=== PATIENT | male | born 1980 | race Caucasian/White ===

== ENCOUNTER 2020-04-09 15:54 | Emergency (ER) | payer OTHER, SELFPAY ==
[2020-04-09 16:06] VITALS: BP 121/84; PULSE 78; RESP 20; TEMP 36.7; O2SAT 98; BMI 36.9
--- NOTE | 2020-04-09 16:12 | HMH.EDUTC ---
[facility] [place] Disposition Clinical Impression: Exposure to COVID-19 virus Tinea pedis Qualifiers: Laterality: left Qualified Code(s): B35.3 - Tinea pedis Disposition: Home, Self-Care Condition on Discharge: Good Instructions: DI for Athlete's Foot, Clotrimazole Topical, Preventing the Spread of Coronavirus Discharge Instructions Additional Instructions: Drink plenty of fluids. Take tylenol for pain or fever. Return if you begin to have difficulty breathing. Follow up with your regular doctor. GO TO THE ER FOR ANY WORSENING SYMPTOMS Prescriptions: Clotrimazole 1 applicatio TP BID 14 Days #1 tube Transmission Status: Received by [facility]/pharmacy #[id number] Referrals: Giana Garcia [Primary Care Provider] - Time of Disposition: 16:27 Medical Decision Making - Medical Records Medical records reviewed: No: I reviewed the patient's medical records. - Dariel Inquiry Pt receiving controlled substance: No Vital Signs: 04/09/20 16:06 04/09/20 16:31 Temperature 98.1 F 98.1 F Temperature Source Oral Oral Pulse Rate 78 Pulse Rate [Radial] 78 Respiratory Rate 20 20 Blood Pressure 121/84 Blood Pressure [Right Arm] 121/84 Blood Pressure Mean [Right Arm] 96 Blood Pressure Source Automatic Cuff Blood Pressure Source [Right Arm] Automatic Cuff Blood Pressure Position Sitting Blood Pressure Position [Right Arm] Sitting 02 Sat by Pulse Oximetry 98 Oxygen Delivery Method Room Air Room Air Orders (Tests/Meds): ORDERS Category Date Time Status Covid-19 Nasal PCR ([facility]) Routine Lab 04/09/20 14:25 Received [facility] [place] HPI - General Stated complaint: covid test Time Seen by Provider: 04/09/20 16:12 Mode of Arrival: Ambulatory Source of Information: Patient Limitations: No Limitations Description of Symptoms (Recalled from Triage Doc. by RN): covid test HEENT Symptoms (Recalled from RN notes): No Resp Symptoms (Recalled from RN notes): No Skin Symptoms (Recalled from RN notes): No MS Symptoms (Recalled from RN notes): No Functional Status (Recalled from RN notes): wnl - History of Present Illness Provider Complaint: He thinks that he may have been exposed to covid. He also c/o having an itchy area on his left foot. - Related Data Home Medications Medication Instructions Recorded Confirmed loratadine 10 mg tablet 10 mg PO DAILY 12/31/18 12/31/18 Previous Rx's Medication Instructions Recorded nystatin-triamcinolone 100,000 1 applic TOPICAL TID 14 Days #30 g 05/15/18 unit/g-0.1 % topical cream Clotrimazole 1 applicatio TP BID 14 Days #1 tube 04/09/20 Allergies Allergy/AdvReac Type Severity Reaction Status Date / Time No Known Allergies Allergy Verified 05/15/18 16:12 - Worker's Comp Is this a Worker's Comp case?: No H History - Hepatitis A Screen Drug use history?: No High risk sexual behaviors?: No History of sexually transmitted infection?: No Currently employed?: No Childcare worker?: No Do you have indoor plumbing?: Yes Do you have electricity?: Yes Attestation statement:: This patient has been screened for Hepatitis A risk factors. I have reviewed the patient's past medical history: Yes 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: Denies:: Cancer, Diabetes Mellitus Type 1, Diabetes Mellitus Type 2, MRSA Other Surgeries: Yes: No Previous Surgery Amputation: No Fractures: No - Social History Smoking Status: Never smoker Alcohol Intake: never Occupational Status: employed Housing: house ROS Obtained: Yes All systems reviewed & no additional complaints - Constitutional Constitutional: Reports system reviewed and no additional complaints, except as docu - Eyes Eyes: Reports system reviewed and no additional complaints, except as docu - ENT Ears, Nose, Mouth, and Throat: Reports system reviewed and no additional complaints, except as docu - Cardiovascular Cardiovascular: Reports system reviewed and no additional complaints, except as docu - Respiratory Respiratory
[2020-04-09 16:31] VITALS: BP 121/84; PULSE 78; RESP 20; TEMP 36.7; O2SAT 98
--- NOTE | 2020-04-10 17:44 | PC.NURSE ---
attempted to contact pt to notify of test results, no answer on the number provided, left a voicemail asking for a return call.
--- NOTE | 2020-04-10 17:48 | PC.NURSE ---
notified pt of covid test result at this time. pt was educated on quarantine procedure r/t pt was hesitant about his test result r/t pt states he has not symptoms. pt verbalizes understanding.
== END 2020-04-09 16:38 | disposition home or self-care (01) ==
PROVIDERS: Emergency Provider Nurse Practitioner Family; PCP Nurse Practitioner Family
DX: U07.1 COVID-19 (principal); B35.3 Tinea pedis
CPT/HCPCS: 99201; U0003

== ENCOUNTER 2021-03-06 06:07 | Emergency (ER) | payer MEDICAID, SELFPAY ==
[2021-03-06 06:08] VITALS: BP 144/85; PULSE 102; RESP 16; TEMP 36.8; O2SAT 99; BMI 34.9
--- NOTE | 2021-03-06 06:12 | HMH.EDGENADL ---
ED Disposition Clinical Impression: Upper respiratory infection Qualifiers: URI type: unspecified viral URI Qualified Code(s): J06.9 - Acute upper respiratory infection, unspecified Disposition: Home, Self-Care Condition on Discharge: Good Instructions: DI for Acute Bronchitis Additional Instructions: Follow up with your PCP to evaluate if treatments are effective. Referrals: Giana Garcia [Primary Care Provider] - - Critical Care Critical Care Time: No Attestation: On 03/06/21, the high probability of a clinically significant, sudden or life threatening deterioration of the following system(s) required my full and direct attention, intervention and personal management. The time I documented below is in addition to time spent performing reported procedures but includes the following listed in this critical care notation. Medical Decision Making - Dariel Inquiry Pt receiving controlled substance: No Medical Decision Narrative: Patient is a 41-year-old male presented emergency department chief complaint of cough. Differential diagnosis is viral cough, COVID-19, GERD, COPD. On examination patient did have some wheezing, however he stated it had much improved and he was denied any dyspnea with it. Patient refused a Covid test. Will retest patient for Covid, provide him with steroid inhaler due to his wheezing as well as Pepcid outpatient. General Adult HPI - General Stated complaint: cough Time Seen by Provider: 03/06/21 06:13 Mode of Arrival: Ambulatory Source of Information: Patient Limitations: No Limitations - History of Present Illness HPI narrative: She is a 41-year-old male presenting to the emergency department with chief complaint of cough. Patient states that he has had a cough for the past 2 weeks, he is received a Z-Juan, steroids for it, as well as Tessalon Perles with some minimal improvement. He came to emergency department today because he feels that the cough is worsened with eating and after eating he had worsening of the cough. He denies any difficulty breathing, any fever, abdominal pain, states that he has had some mild runny bowel movements but this is been going on since he started his low-carb diet. Also given an albuterol inhaler which he has used, is unsure of its benefit. He denies any past history of asthma or COPD but does state that he has had some wheezing for the past 2 weeks, and that has improved after the Z-Juan. The patient was brought into the emergency department today he said that he continued to have this tickle sensation, and the coughing that concerned him. He has had a Covid last year. - Related Data Previous Rx's Medication Instructions Recorded nystatin-triamcinolone 100,000 1 applic TOPICAL TID 14 Days #30 g 05/15/18 unit/g-0.1 % topical cream Clotrimazole 1 applicatio TP BID 14 Days #1 tube 04/09/20 albuterol sulfate 90 mcg/actuation 2 puff INHALATION Q6H PRN 7 Days 01/15/21 aerosol inhaler #6.7 g benzonatate 200 mg capsule 200 mg PO TID PRN 7 Days #21 cap 02/27/21 Famotidine [Pepcid] 20 mg PO DAILY #14 tab 03/06/21 Allergies Allergy/AdvReac Type Severity Reaction Status Date / Time No Known Allergies Allergy Verified 02/27/21 15:58 [facility] History - Hepatitis A Screen Attestation statement:: This patient has been screened for Hepatitis A risk factors. I have reviewed the patient's past medical history: Yes 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: Denies:: Cancer, Diabetes Mellitus Type 1, Diabetes Mellitus Type 2, MRSA Other Surgeries: Yes: No Previous Surgery Amputation: No Fractures: No - Social History Smoking Status: Never smoker Alcohol Intake: never Occupational Status: employed Housing: house Family Hx:: Non-contributory ROS Obtained: Yes All systems reviewed & no additional complaints Physical Exam - General General appearance: alert, in no apparent distress - Head Head exam: atraumatic, normocephalic - Eye Eye exam: Present: normal
[2021-03-06 06:57] VITALS: BP 144/82; PULSE 68; RESP 16; TEMP 36.7; O2SAT 98
== END 2021-03-06 06:59 | disposition home or self-care (01) ==
PROVIDERS: Emergency Provider Emergency Medicine; PCP Nurse Practitioner Family
DX: J06.9 Acute upper respiratory infection, unspecified (principal)
CPT/HCPCS: 99281

== ENCOUNTER 2022-04-14 16:52 | Emergency (ER) | payer MEDICAID, SELFPAY ==
[2022-04-14 18:27] VITALS: BP 0/0; PULSE 0; RESP 0; TEMP -17.7; TEMP 0
== END 2022-04-14 18:28 | disposition left against medical advice (07) ==
PROVIDERS: Emergency Provider Nurse Practitioner; PCP Pediatrics
DX: Z53.21 Procedure and treatment not carried out due to patient leaving prior to being seen by health care provider (principal)

== ENCOUNTER 2022-04-14 22:42 | Emergency (ER) | payer MEDICAID, SELFPAY ==
[2022-04-14 22:42] VITALS: BP 131/61; PULSE 103; RESP 16; TEMP 36.8; O2SAT 99; BMI 38.6
--- NOTE | 2022-04-14 23:05 | XR_ITS ---
PROCEDURE INFORMATION: Exam: XR Lumbosacral Spine Exam date and time: 04/14/2022 11:07 PM Age: 42 years old Clinical indication: Patient HX: PT states having low back pain with no injury TECHNIQUE: Imaging protocol: Radiologic exam of the lumbosacral spine. Views: 4 or 5 views. COMPARISON: SPLUMBWO CT lumbar spine wo con 09/28/2017 12:36 AM FINDINGS: Bones/joints: Progressive disc space narrowing L5-S1 since comparison CT 09/28/2017. Soft tissues: Unremarkable. IMPRESSION: Progressive disc space narrowing L5-S1 since comparison CT 09/28/2017.
--- NOTE | 2022-04-15 00:35 | HMH.EDBACK ---
Discharge Plan Disposition Patient Disposition: Home, Self-Care Prescriptions Prescriptions: New prednisone [prednisone] 20 mg tablet 20 mg PO BID Qty: 10 0RF ketorolac 10 mg tablet 10 mg PO TID 3 Days Qty: 9 0RF No Action nystatin-triamcinolone 100,000-0.1 unit/g-% cream 1 applic TOPICAL TID 14 Days Qty: 30 0RF albuterol sulfate 90 mcg/actuation HFA aerosol inhaler 2 puff INHALATION Q6H PRN (Reason: SOB/wheezing) 7 Days Qty: 6.7 0RF Rx Instructions: administer with spacer benzonatate 200 mg capsule 200 mg PO TID PRN (Reason: cough) 7 Days Qty: 21 0RF clotrimazole 28.4 GM cream 1 applicatio TP BID 14 Days Qty: 1 0RF famotidine 20 MG tablet 20 mg PO DAILY Qty: 14 0RF Referrals Follow up/Referrals: Talha Adair [Primary Care Provider] - See instructions Clinical Impressions Clinical Impression: Lumbar radiculopathy Instructions Patient Instructions: DI for Low Back Pain Discharge ED Provider: Elpidio Gavin Back Pain HPI General Chief Complaint: Back Pain/Injury Stated Complaint: backpain Time Seen by Provider: 04/15/22 00:44 Mode of Arrival: Ambulatory Source of Information: Patient Limitations: No Limitations Description of Symptoms (Recalled from ER Triage Doc. by RN): pt c/o lt lower back that he feels a catch when turning left. pt denies any trauma or accident History of Present Illness HPI Narrative: acute exacerbation of ongoing back pain which increased tonight - no def fever or rash and no trauma or cauda equina sx Complaint: back pain Onset (ago): hour(s) Duration: constant Similar Symptoms Previously: Yes Location: lumbar spine Severity: severe Quality: aching Exacerbating factors: movement Context: turning/twisting Associated symptoms: denies other symptoms Related Data Previous Rx's Medication Instructions Recorded nystatin-triamcinolone 100,000 1 applic topical TID 14 days #30 05/15/18 unit/g-0.1 % topical cream grams clotrimazole 1 % topical cream 1 applicatio TP BID 14 days #1 tube 04/09/20 albuterol sulfate 90 mcg/actuation 2 puff inhalation Q6H PRN 01/15/21 aerosol inhaler SOB/wheezing 7 days #6.7 grams benzonatate 200 mg capsule 200 mg PO TID PRN cough 7 days #21 02/27/21 caps famotidine 20 mg tablet 20 mg PO DAILY #14 tabs 03/06/21 ketorolac 10 mg tablet 10 mg PO TID 3 days #9 tabs 04/15/22 prednisone 20 mg tablet 20 mg PO BID #10 tabs 04/15/22 Allergies Allergy/AdvReac Type Severity Reaction Status Date / Time No Known Allergies Allergy Verified 02/27/21 15:58 [facility] Disclaimer: The information contained in this section may have been updated after the patient was seen, as this information can be updated by other users. Social History Smoking Status: Never smoker alcohol intake: never current occupational status: employed Travel in the last 8 weeks: None housing: house ROS Obtained: Yes All systems reviewed & no additional complaints except as documented Physical Exam General General appearance: alert Head Head exam: normocephalic Eye Eye exam: Present PERRL and EOMI ENT ENT exam: Present mucous membranes moist Neck Neck exam: Present trachea midline Respiratory Respiratory exam: Absent respiratory distress Cardiovascular Cardiovascular exam: Present regular rate Extremities Exam Extremities exam: Absent joint swelling Back Exam Back exam: Present tenderness and paraspinal tenderness; Absent full ROM Neurological Exam Neurological exam: Present alert, oriented X3 and CN II-XII intact Psychiatric Psychiatric exam: Present normal affect Skin Skin exam: Absent rash Medical Decision Making Medical Records Medical records reviewed: Yes I reviewed the patient's medical records. Dariel Inquiry Pt receiving controlled substance: No Vital Signs: 04/14/22 22:42 Temperature 98.2 F Temperature Source Oral Pulse Rate [Right] 103 H Respiratory Rate 16 Blood Pressure [Right A
[2022-04-15 01:20] VITALS: BP 130/67; PULSE 90; RESP 16; TEMP 36.8; O2SAT 99
== END 2022-04-15 01:22 | disposition home or self-care (01) ==
PROVIDERS: Emergency Provider Emergency Medicine; PCP Pediatrics
DX: M54.16 Radiculopathy, lumbar region (principal)
CPT/HCPCS: 72110; 99283

== ENCOUNTER 2022-04-25 17:50 | Emergency (ER) | payer MEDICAID, SELFPAY ==
[2022-04-25 18:30] VITALS: BP 145/92; PULSE 79; RESP 18; TEMP 36.7; O2SAT 98; BMI 36.2
[2022-04-25 18:52] LABS: Apearance,Urine Clear (Clear); Bilirubin,Urine Negative (Negative); Blood, Urine Negative (Negative); Color,Urine Yellow (Yellow); Glucose,Urine (UA) Negative (Negative); Ketones,Urine Negative (Negative); PH,Urine 5.5 (5.0-8.5); Protein,Urine Negative (Negative); Specific Gravity, Urine <= 1.005 (1.005-1.030); Urobilinogen,Urine 0.2 EU/dl (0.2)
[2022-04-25 18:53] LABS: UTC Leukocyte Esterase,Urine Negative (Negative); UTC Nitrate,Urine Negative (Negative)
--- NOTE | 2022-04-25 18:54 | EXP.UTC ---
Discharge Plan Disposition Patient Disposition: Home, Self-Care Condition: Good Prescriptions Prescriptions: New prednisone [prednisone] 20 mg tablet 20 mg PO BID Qty: 10 0RF No Action nystatin-triamcinolone 100,000-0.1 unit/g-% cream 1 applic TOPICAL TID 14 Days Qty: 30 0RF albuterol sulfate 90 mcg/actuation HFA aerosol inhaler 2 puff INHALATION Q6H PRN (Reason: SOB/wheezing) 7 Days Qty: 6.7 0RF Rx Instructions: administer with spacer benzonatate 200 mg capsule 200 mg PO TID PRN (Reason: cough) 7 Days Qty: 21 0RF clotrimazole 28.4 GM cream 1 applicatio TP BID 14 Days Qty: 1 0RF famotidine 20 MG tablet 20 mg PO DAILY Qty: 14 0RF prednisone [prednisone] 20 mg tablet 20 mg PO BID Qty: 10 0RF ketorolac 10 mg tablet 10 mg PO TID 3 Days Qty: 9 0RF Referrals Follow up/Referrals: Talha Adair [Primary Care Provider] - See instructions Clinical Impressions Clinical Impression: Back pain with sciatica Instructions Patient Instructions: DI for Back Pain With Sciatica Discharge ED Provider: Lopez ([facility])Papi [facility] HPI General Stated complaint: Back pain Mode of Arrival: Ambulatory Source of Information: Patient Limitations: No Limitations Time Seen by Provider: 04/25/22 18:54 Description of Symptoms (Recalled from Triage Doc. by RN): PATIENT C/O RIGHT LOWER BACK PAIN HEENT Symptoms (Recalled from RN notes): No Resp Symptoms (Recalled from RN notes): No Skin Symptoms (Recalled from RN notes): No MS Symptoms (Recalled from RN notes): Yes Functional Status (Recalled from RN notes): WNL History of Present Illness Provider Complaint: 42 yr old male presents for low back pain with pain radiating down left leg. was treated 2 weeks ago and he seen the chiropractor and had some adjustments and pain improved but he was reaching around to get his wallet and felt the pull in his back and since then the pain had returned, also is voiding freq Related Data Previous Rx's Medication Instructions Recorded nystatin-triamcinolone 100,000 1 applic topical TID 14 days #30 05/15/18 unit/g-0.1 % topical cream grams clotrimazole 1 % topical cream 1 applicatio TP BID 14 days #1 tube 04/09/20 albuterol sulfate 90 mcg/actuation 2 puff inhalation Q6H PRN 01/15/21 aerosol inhaler SOB/wheezing 7 days #6.7 grams benzonatate 200 mg capsule 200 mg PO TID PRN cough 7 days #21 02/27/21 caps famotidine 20 mg tablet 20 mg PO DAILY #14 tabs 03/06/21 ketorolac 10 mg tablet 10 mg PO TID 3 days #9 tabs 04/15/22 prednisone 20 mg tablet 20 mg PO BID #10 tabs 04/15/22 prednisone 20 mg tablet 20 mg PO BID #10 tabs 04/25/22 Allergies Allergy/AdvReac Type Severity Reaction Status Date / Time No Known Allergies Allergy Verified 02/27/21 15:58 Worker's Comp Is this a Worker's Comp case?: No [facility] Disclaimer: The information contained in this section may have been updated after the patient was seen, as this information can be updated by other users. 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) Smoking Status: Never smoker alcohol intake: never current occupational status: employed Travel in the last 8 weeks: None housing: house ROS Obtained: Yes All systems reviewed & no additional complaints except as documented Constitutional Constitutional: Reports system reviewed and no additional complaints, except as documented and Denies fever(s) Eyes Eyes: Reports system reviewed and no additional complaints, except as documented ENT Ears, Nose, Mouth, and Throat: Reports system reviewed and no additional complaints, except as documented Cardiovascular Cardiovascular: Reports system reviewed and no additional complaints, except as documented Respiratory Respiratory: Reports system reviewed and no additional complaints, except as documented Gastrointestinal Gastro
[2022-04-25 20:07] VITALS: BP 145/92; PULSE 79; RESP 18; TEMP 36.7; O2SAT 98
[2022-04-25 20:07] LABS: Alanine Aminotransferase 26 U/L (12-78); Albumin Level 4.9 g/dl (3.5-5.0); Albumin/Globulin Ratio 1.9 (1.1-1.8); Alkaline Phosphatase 106 U/L (38-126); Anion Gap 11.4 mEq/L (5-15); Aspartate Amino Transferase 35 U/L (17-59); Bilirubin,Total 0.4 mg/dl (0.2-1.3); Blood Urea Nitrogen 17 mg/dl (9-20); Calcium 9.9 mg/dl (8.4-10.2); Carbon Dioxide 28 mmol/L (22.0-30.0); Chloride 105 mmol/L (98-107); Creatinine Clearance Estimated 225 mL/min (50-200); Estimated Glomerular Filt Rate 123 ml/min (>60); GFR (African American) 148 ML/MIN (>60); Globulin 2.6 g/dL (1.3-3.2); Glucose 90 mg/dl (74-100); Potassium 4.4 mmoL/L (3.5-5.1); Sodium 140 mmol/L (136-145); Total Protein,Serum 7.5 g/dl (6.3-8.2)
== END 2022-04-25 20:20 | disposition home or self-care (01) ==
PROVIDERS: Emergency Provider Nurse Practitioner Family; PCP Pediatrics
DX: M54.40 Lumbago with sciatica, unspecified side (principal); M54.16 Radiculopathy, lumbar region; J45.909 Unspecified asthma, uncomplicated; Z79.51 Long term (current) use of inhaled steroids; Z79.52 Long term (current) use of systemic steroids; Z79.899 Other long term (current) drug therapy
CPT/HCPCS: 80053; 81003; 87086; 96374; 99213; G0463

== ENCOUNTER 2023-08-08 14:34 | Emergency (ER) | payer OTHER, SELFPAY ==
[2023-08-08 14:40] VITALS: BP 130/81; PULSE 82; RESP 16; TEMP 36.8; O2SAT 98; BMI 40.1
--- NOTE | 2023-08-08 14:56 | EXP.UTC ---
Discharge Plan Disposition Patient Disposition: Home, Self-Care Condition: Good Prescriptions Prescriptions: New azithromycin [Zithromax Z-Juan] 250 mg tablet See Rx Instructions .ROUTE .COMPLEX 5 Days Qty: 6 0RF Rx Instructions: For 250 mg dose pack: take 500 mg today (day 1), then 250 mg for 4 days (days 2-5) methylprednisolone [Medrol (Juan)] 4 mg tablets,dose pack See Rx Instructions .Route .COMPLEX 6 Days Qty: 21 0RF Rx Instructions: taper pack; No Action albuterol sulfate 90 mcg/actuation HFA aerosol inhaler 2 puff INHALATION Q6H PRN (Reason: SOB/wheezing) 7 Days Qty: 6.7 0RF Rx Instructions: administer with spacer Referrals Follow up/Referrals: Talha Adair [Primary Care Provider] - See instructions Activity Restrictions/Add. Instructions Additional Instructions/Restrictions: Monitor Temp, Over the counter Motrin or Tylenol as directed/as needed Tylenol every 4 hours and Motrin every 6 hours (as long as your family doctor has told you that you can take it) for fever or pain. and straight to ER if unable to lower temp less than 101.0 after medication given *Warm salt water gargles may help to soothe the throat *Throat Lozenges? *Warm fluids like tea with honey may help to soothe the throat? *Sleep elevated *Humidifier/Vaporizer *Take medication as prescribed Follow up IMMEDIATELY for new or worsening symptoms or no Noticeable improvement over the next 48-72 hours. 911 for difficulty breathing or swallowing Clinical Impressions Clinical Impression: Sinusitis Instructions Patient Instructions: DI for Sinusitis, Sinusitis Discharge ED Provider: Susan Good [facility] HPI General Stated complaint: sinus congestion, cough Mode of Arrival: Ambulatory Source of Information: Patient Limitations: No Limitations Time Seen by Provider: 08/08/23 14:57 Description of Symptoms (Recalled from Triage Doc. by RN): PATIENT C/O COUGH AND SINUS PRESSURE X 3 DAYS HEENT Symptoms (Recalled from RN notes): Yes Resp Symptoms (Recalled from RN notes): Yes Skin Symptoms (Recalled from RN notes): No MS Symptoms (Recalled from RN notes): No Functional Status (Recalled from RN notes): WNL History of Present Illness Provider Complaint: Patient states that he has been sick for several days with sinus pain and pressure and cough States that mucous has got thick and blood tinged at times so today when he wasnt feeling any better he came in to get checked Related Data Previous Rx's Medication Instructions Recorded albuterol sulfate 90 mcg/actuation 2 puff inhalation Q6H PRN 01/15/21 aerosol inhaler SOB/wheezing 7 days #6.7 grams azithromycin 250 mg tablet See Rx Instructions PO .COMPLEX 5 08/08/23 (Zithromax Z-Juan) days #6 tabs methylprednisolone 4 mg tablets in See Rx Instructions .Route 08/08/23 a dose pack (Medrol (Juan)) .COMPLEX 6 days #21 tabs Allergies Allergy/AdvReac Type Severity Reaction Status Date / Time No Known Allergies Allergy Verified 02/27/21 15:58 Worker's Comp Is this a Worker's Comp case?: No [facility] Disclaimer: The information contained in this section may have been updated after the patient was seen, as this information can be updated by other users. 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) Smoking Status: Never smoker alcohol intake: never current occupational status: employed Travel in the last 8 weeks: None housing: house ROS Obtained: Yes All systems reviewed & no additional complaints except as documented and Yes Systems reviewed as appropriate & no additional complaints except as documented Constitutional Constitutional: Reports system reviewed and no additional complaints, except as documented, Reports as per HPI and Reports headache(s) ENT Ears, Nose, Mouth, and Throat: Reports system reviewed and no additional complaints, except as documented, Reports as per HPI, Reports headache(s), Reports sinus pain and Reports sinus pressure Cardiovascular Cardiovascular: Reports system reviewed and no additional complaints, except as documented and Reports as per HPI Respiratory Respiratory: Reports system reviewed and no additional complaints, except as documented, Reports as per HPI and Reports cough Gastrointestinal Gastrointestingal: Reports system reviewed and no additional complaints, except as documented and as per HPI Neurologic Neurologic: Reports headache(s) Physical Exam General General appearance: alert and in no apparent distress ENT ENT exam: Present mucous membranes moist Expanded ENT Exam Nose exam: Present sinus tenderness Throat exam: Present other (PND noted) Respiratory Respiratory exam: Present normal lung sounds bilaterally; Absent respiratory distress or wheezes Cardiovascular Cardiovascular exam: Present regular rate, normal rhythm and normal heart sounds Neurological Exam Neurological exam: Present alert, oriented X3 and normal gait Medical Decision Making Dariel Inquiry Pt receiving controlled substance: No Dariel was queried for this patient: No Vital Signs: 08/08/23 14:40 Temperature 98.2 F Temperature Source Oral Pulse Rate [Left Brachial] 82 Respiratory Rate 16 Blood Pressure [Left Arm] 130/81 Blood Pressure Mean [Left Arm] 97 Blood Pressure Source [Left Arm] Automatic Cuff Blood Pressure Position [Left Arm] Sitting 02 Sat by Pulse Oximetry 98 Oxygen Delivery Method Room Air Medical Decision Narrative: Patient states that he has taken azithromycin and Medrol pack in the past without complications or reactions
[2023-08-08 15:01] VITALS: BP 130/81; PULSE 82; RESP 16; TEMP 36.8; O2SAT 98
== END 2023-08-08 15:08 | disposition home or self-care (01) ==
PROVIDERS: Emergency Provider Nurse Practitioner; PCP Pediatrics
DX: J01.90 Acute sinusitis, unspecified (principal); R05.9 Cough, unspecified; R51.9 Headache, unspecified; R09.81 Nasal congestion
CPT/HCPCS: 99212; 99214; G0463

== ENCOUNTER 2024-02-15 20:45 | Inpatient (IN) | payer OTHER, SELFPAY ==
[2024-02-15 20:47] VITALS: BP 136/86; PULSE 135; RESP 20; TEMP 37.2; O2SAT 99; BMI 37.0
--- NOTE | 2024-02-15 21:03 | XR_ITS ---
PROCEDURE INFORMATION: Exam: XR Chest Exam date and time: 02/15/2024 9:09 PM Age: 43 years old Clinical indication: Shortness of breath; Additional info: SOA palpitations TECHNIQUE: Imaging protocol: Radiologic exam of the chest. Views: 1 view. COMPARISON: ABDPELWO CT abdomen pelvis wo con 09/28/2017 12:33 AM FINDINGS: Lungs: No evidence of acute pulmonary disease or infiltrates Pleural spaces: No large effusion or pneumothorax. Heart/Mediastinum: Stable cardiac and mediastinal contours. Diaphragm: There is elevation of the right hemidiaphragm. Bones/joints: No evidence of acute osseous abnormalities within the visualized portions of the thoracic spine and ribs. Osseous structures appear appropriate for patient age. IMPRESSION: No dense parenchymal consolidation, pleural effusion, or pneumothorax.
--- NOTE | 2024-02-15 21:12 | [facility].EDCP ---
Discharge Plan Disposition Patient Disposition: Admitted Chief Complaint: Chest Pain Prescriptions Prescriptions: No Action albuterol sulfate 90 mcg/actuation HFA aerosol inhaler 2 puff INHALATION Q6H PRN (Reason: SOB/wheezing) 7 Days Qty: 6.7 0RF Rx Instructions: administer with spacer azithromycin [Zithromax Z-Juan] 250 mg tablet See Rx Instructions .ROUTE .COMPLEX 5 Days Qty: 6 0RF Rx Instructions: For 250 mg dose pack: take 500 mg today (day 1), then 250 mg for 4 days (days 2-5) methylprednisolone [Medrol (Juan)] 4 mg tablets,dose pack See Rx Instructions .Route .COMPLEX 6 Days Qty: 21 0RF Rx Instructions: taper pack; Referrals Follow up/Referrals: Provider,Referral, MD [Primary Care Provider] - See instructions Clinical Impressions Clinical Impression: Myocarditis, Cardiomyopathy Print Language Print Language: Croatian Discharge ED Provider: Finesse Gastelum HPI General Chief Complaint: Chest Pain Stated Complaint: congestion,rash all over Time Seen by Provider: 02/15/24 20:49 Mode of Arrival: Ambulatory Source of Information: Patient Limitations: No Limitations Description of Symptoms (Recalled from ER Triage Doc. by RN): Patient presented to ED for chest pain, dizziness, and headache. Patient stated he had a headache that was more of a pressure yesterday and also dizziness and slept from 1800 yesterday to 1300 today which isn't normal for him. Patient states dizziness resolved after eating- he is not a known diabetic but worried he may be. Patient also c/o chest pain with cough and deep breathing that started today. No pain at this time. He has a hx of asthma and used his inhalers and they helped some but not completely. On a side note, patient stated he has some areas he believes is psorasis but has never been diagnosed- specifically on his left calf and scalp. He said this has been going on for 3-4 years. History of Present Illness HPI narrative: Please note that above description of symptoms, in this electronic medical record under categorization of recalled from ER triage doctor by RN are reflective of an initial nursing assessment, however, is not reflective of my full history and physical exam that was personally taken and clarified. Consequentially, this preceding description of symptoms, which may include the patient's categorized chief complaint in the EMR, do not reflect my personal clinical impression, and the ultimate description of history of present illness and patient stated complaints should be deferred to this section of the note. Unless stated otherwise or congruent with this section of the note, additional signs, symptoms, or incongruence should be interpreted as inaccurate with my clinical impression. Related Data Previous Rx's ?Medication ?Instructions ?Recorded albuterol sulfate 90 mcg/actuation 2 puff inhalation Q6H PRN 01/15/21 aerosol inhaler SOB/wheezing 7 days #6.7 grams azithromycin 250 mg tablet See Rx Instructions PO .COMPLEX 5 08/08/23 (Zithromax Z-Juan) days #6 tabs methylprednisolone 4 mg tablets in See Rx Instructions .Route 08/08/23 a dose pack (Medrol (Juan)) .COMPLEX 6 days #21 tabs Allergies Allergy/AdvReac Type Severity Reaction Status Date / Time No Known Allergies Allergy Verified 02/27/21 15:58 [facility] Disclaimer: The information contained in this section may have been updated after the patient was seen, as this information can be updated by other users. 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) Smoking Status: Never smoker alcohol intake: never current occupational status: employed Travel in the last 8 weeks: None housing: house Other 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 Have you received the Flu Vaccine for this season: No Have you received the Pneumonia Vaccine: No ROS Obtained: Yes All systems reviewed & no additional complaints except as documented Physical Exam General General appearance: alert, anxious and obese Neck Neck exam: Present trachea midline Chest Chest inspection: Present normal inspection and symmetric chest wall rise Respiratory Respiratory exam: Present normal lung sounds bilaterally; Absent respiratory distress, wheezes, stridor, accessory muscle use or prolonged expiratory phase Cardiovascular Cardiovascular exam: Present normal rhythm, tachycardia, normal heart sounds and other (Pulses equal and symmetric in upper and lower extremities); Absent systolic murmur Extremities Exam Extremities exam: Absent edema Neurological Exam Neurological exam: Present alert, oriented X3, CN II-XII intact and normal gait; Absent motor sensory deficit Skin Skin exam: Present warm, dry and rash (Psoriatic); Absent cyanosis, diaphoresis or pallor HEART Score HEART Score HEART Score assessment performed?: Yes History (anamnesis): Moderately suspicious ECG: Non-specific disturbance Age: 45-65 years Risk factors: No known risk factors Troponin: 1-3x normal limit HEART Score: 4 Critical Care Critical Care Time Critical Care Time: Yes (cardiac) Attestation: On 02/15/24, the high probability of a clinically significant, sudden or life threatening deterioration of the following system(s) required my full and direct attention, intervention and personal management. The time I documented below is in addition to time spent performing reported procedures but includes the following listed in this critical care notation. Total Time Total Critical Care Time: 40 Medical Decision Making Medical Records Medical records reviewed: Yes I reviewed the patient's medical records. Dariel Inquiry Pt receiving controlled substance: No Dariel was queried for this patient: No Vital Signs Vital Signs: 02/15/24 20:47 02/15/24 21:31 Temperature 99 F Temperature Source Oral Pulse Rate [Right Brachial] 135 H Respiratory Rate 20 36 H Blood Pressure [Right Arm] 136/86 Blood Pressure Mean [Right Arm] 102 02 Sat by Pulse Oximetry 99 Oxygen Delivery Method Room Air Lab Data Labs: Lab Results 02/15/24 21:25: WBC 15.6 H, RBC 4.85, Hgb 14.3, Hct 43.1, MCV 88.8, MCH 29.5, MCHC 33.3, RDW 14.1, Plt Count 208, MPV 8.8, Neut % (Auto) 81.5 H, Lymph % (Auto) 9.0 L, [place] % (Auto) 8.3, Eos % (Auto) 0.6, Baso % (Auto) 0.6, Neut # (Auto) 12.7 H, Lymph # (Auto) 1.4, [place] # (Auto) 1.3 H, Eos # (Auto) 0.1, Baso # (Auto) 0.1, Total Counted 100, Neutrophils % (Manual) 78 H, Band Neutrophils % 1.0, Lymphocytes % (Manual) 12, Monocytes % (Manual) 7, Eosinophils % (Manual) 2, Platelet Estimate Normal, Hypochromasia 1+, Anisocytosis 1+, Microcytosis 1+, Macrocytosis 1+, PT 11.9, INR 1.07, APTT 28.8, D-Dimer 0.71 H, Sodium 135 L, Potassium 4.0, Chloride 99, Carbon Dioxide 25, Anion Gap 15.0, BUN 18, Creatinine 0.70, Estimated Creat Clear 228, Estimated GFR 122, Est GFR ( Amer) 148, Glucose 177 H, Hemoglobin A1c 5.6, Calcium 9.2, Magnesium 1.8, Total Bilirubin 0.9, AST 25, ALT 36, Alkaline Phosphatase 68, Troponin I 0.18 H, NT-Pro-B Natriuret Pep 2620 H, Total Protein 7.5, Albumin 4.6, Globulin 2.9, Albumin/Globulin Ratio 1.6, Triglycerides 140, Cholesterol 159, LDL Cholesterol Direct 81.80 L, VLDL Cholesterol 28, HDL Cholesterol 37 L, Cholesterol/HDL Ratio 4.3 H, TSH 0.66, Thyroxine (T4) 6.2 02/15/24 21:30: VBG pH 7.38, VBG pCO2 41.4, VBG pO2 38.4, VBG HCO3 23.9, VBG Total CO2 25.2, VBG O2 Saturation 74.7 H, VBG Base Excess -1.3, VBG Lactic Acid 2.7 H 02/15/24 21:25 02/15/24 21:25 Response Orders (Tests/Meds): ED MEDICATIONS Generic Name Dose Route Start Last Admin Trade Name Freq PRN Reason Stop Dose Admin Sodium Chloride 10 ml 02/15/24 22:32 02/15/24 22:34 Sodium Chloride 0.9% 10ml Syr (Rad Only) IV 03/16/24 22:31 10 ml NEEDED PRN Administration Maintain IV Site Discontinued Medications Generic Name Dose Route Start Last Admin Trade Name Freq PRN Reason Stop Dose Admin Sodium Chloride 1,000 mls @ 999 mls/hr 02/15/24 21:03 02/15/24 21:45 Sod Chlor 0.9% 1000ml Bag IV 02/15/24 22:03 999 mls/hr .Q1H1M ONE Administration Iopamidol 70 ml 02/15/24 22:32 02/15/24 22:33 Iopamidol-370 (76%);100ml Bottle IV 02/15/24 22:33 70 ml ONCE ONE Administration Sodium Chloride 50 ml 02/15/24 22:32 02/15/24 22:33 0.9 % Sodium Chloride 50 Ml Vial IV 02/15/24 22:33 50 ml ONCE ONE Administration ORDERS Category Date Time Status CT angio chest PE protocol Stat Cat Scan 02/15/24 22:21 Completed POCUS Point of Care (ER Only) Stat Exams 02/15/24 22:07 Ordered XR chest portable Stat Exams 02/15/24 21:03 Completed Complete Blood Count Auto Diff Stat Lab 02/15/24 21:25 Completed Comprehensive Metabolic Panel Stat Lab 02/15/24 21:25 Results D-Dimer Stat Lab 02/15/24 21:25 Completed HIV (1&2) Antibody Rapid Stat Lab 02/15/24 21:25 Received Hemoglobin A1C Stat Lab 02/15/24 21:25 Completed Hep C Ab with Reflex to RNA Stat Lab 02/15/24 21:25 Received Lipid Panel Stat Lab 02/15/24 21: Results Magnesium Stat Lab 02/15/24 21: Completed NT Pro Brain Natriuretic Pep. Stat Lab 02/15/24 21:25 Results PT INR [Prothrombin Time INR] Stat Lab 02/15/24 21:25 Completed PTT [Activated Partial Thrombo Time] Stat Lab 02/15/24 21:25 Completed Procalcitonin Stat Lab 02/15/24 21:25 Results T4 (Thyroxine) Stat Lab 02/15/24 21:25 Results TSH [Thyroid Stimulating Hormone] Stat Lab 02/15/24 21:25 Results Troponin I Q3H Lab 02/16/24 00:15 Ordered Troponin I Q3H Lab 02/16/24 03:15 Ordered Troponin I Stat Lab 02/15/24 21:25 Results Venous Blood Gas Stat RT 02/15/24 21:30 Completed MDM Narrative Medical Decision Narrative: 43-year-old male history of asthma and psoriasis presenting with multiple complaints. Patient states that over the last 24 hours, he has developed lightheadedness, dizziness, head fullness, as well as shortness of breath and midsternal chest pain. Lightheadedness started first, followed by substernal chest pain that is intermittent, mild, does not radiate. Associated with deep inspiration. Patient denies fevers or chills, nausea or vomiting, but has had dry cough. Denies wheezing or shortness of breath. Only other associated symptoms include rash, but patient does have known psoriasis. States that intermittently his ankles and other joints become swollen and tender, been taking Tylenol for this. Does not see rheumatology. History was obtained via conversation with patient. On arrival, patient hemodynamically stable, alert, oriented x4, appropriate, GCS 15, moving all extremities spontaneously, pupils equal and reactive to light. Full physical exam performed and significant for anxious appearing male in no acute distress. He is tachycardic and tachypneic. Lungs are clear to auscultation bilaterally, pulses equal and symmetric in upper and lower extremities. No evidence of lower extremity edema. No murmurs gallops or rubs on cardiac auscultation. Differential includes anxiety, intoxication, PE, pneumothorax, ACS, GA, reactive airway disease exacerbation, among others. Patient was given fluid bolus for symptomatic management and correction of underlying abnormalities. Patient placed on continuous cardiac monitoring and continuous pulse ox with initial blood pressure 136/86, heart rate 140, saturation 99% on room air. Bedside [id number] ultrasound demonstrates reduced systolic ejection fraction with elevated EPSS. No pericardial effusion. Left ventricle with concentric collapse, RV without significant dilation. Independent interpretation of EKG shows sinus tachycardia [address] or T wave changes concerning for acute ischemia. Borderline rightward axis. NV 122, QRS 86, QTc 359. Workup independently interpreted and significant for leukocytosis 15.6 with neutrophilic predominance. Patient's PT and PTT are normal. VBG with lactate 2.7, otherwise normal. Patient's chemistry nonactionable. Initial troponin elevated 0.18, BNP elevated at 2600. Thyroid studies normal. Chest x-ray without acute cardiopulmonary space disease. On independent interpretation of imaging, no acute PE on CT PE, but evidence of mild pulmonary edema. See radiology read for full review of final results. Heart score 4. 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 Hospitalist was contacted and case was discussed at length, to be admitted for cardiology consultation. Because patient high risk for clinical decompensation, deemed appropriate for inpatient admission. Results were relayed to patient who voiced understanding and patient was agreeable to inpatient admission and management. Patient was admitted to the hospital for further definitive management. 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 Electronic movement assembly final inspector of the spoken language may permit errors. Although I have reviewed the note, some errors may still exist.
--- NOTE | 2024-02-15 21:13 | ECG_ITS ---
APPROVED REPORT Exam: Resting ECG HR:140 bpm ECG Measurements Heart Rate 140 AXES UT 122 P 77 QRSd 86 QRS 65 QT 278 T 52 QTc 359 Conclusion Sinus tachycardia Borderline right axis deviation Electronically signed by : EMERSON MARTIN, 02/15/2024 23:09:13
[2024-02-15 21:31] VITALS: RESP 36
[2024-02-15 21:40] LABS: Basophils # 0.1 K/mm3 (0-0.2); Basophils % 0.6 % (0.1-2.0); Eosinophils # 0.1 K/mm3 (0.0-0.4); Eosinophils % 0.6 % (0.1-12.0); Hematocrit 43.1 % (42.0-52.0); Hemoglobin 14.3 g/dL (14.1-18.0); Lymphocytes # 1.4 K/mm3 (0.7-4.5); Mean Corpuscular HGB Conc 33.3 g/dL (31.8-35.4); Mean Corpuscular Hemoglobin 29.5 pg (27.0-31.2); Mean Corpuscular Volume 88.8 fl (80-94); Mean Platelet Volume 8.8 fl (7.4-10.4); Monocytes # 1.3 K/mm3 (0.1-1.0); Monocytes % 8.3 % (1.7-9.3); Neutrophils # 12.7 K/mm3 (1.8-7.8); Neutrophils % 81.5 % (37.0-80.0); Platelet Count 208 K/mm3 (142-424); Red Blood Count 4.85 M/mm3 (4.60-6.20); Red Cell Distribution Width 14.1 % (11.5-17.5); White Blood Count 15.6 K/mm3 (4.8-10.8)
[2024-02-15 21:42] LABS: MANUAL DIFFERENTIAL MANUAL DIFFERENTIAL (MANUAL DIFF)
[2024-02-15 21:45] LABS: VBG Base Excess -1.3 mmol/L (-2.4-2.3); VBG HCO3 23.9 mmol/L (23-30); VBG Oxygen Saturation 74.7 % (50-70); VBG PCO2 41.4 mmol/L (35-51); VBG PH 7.38 mmol/L (7.31-7.41); VBG PO2 38.4 mmol/L (28-40); VBG Total CO2 25.2 mmol/L (23-27)
[2024-02-15] MEDS: 0.9 % SODIUM CHLORIDE 1000ML 1,000 ML 999 ML IV (21:45)
[2024-02-15 21:46] LABS: Albumin Level 4.6 g/dl (3.5-5.0); Chloride 99 mmol/L (98-107); Sodium 135 mmol/L (136-145)
[2024-02-15 21:48] LABS: Blood Urea Nitrogen 18 mg/dl (9-20)
[2024-02-15 21:48] LABS: Lactate Venous 2.7 mmol/L (0.4-2.0)
[2024-02-15 21:49] LABS: Alanine Aminotransferase 36 U/L (12-78); Albumin/Globulin Ratio 1.6 (1.1-1.8); Alkaline Phosphatase 68 U/L (38-126); Aspartate Amino Transferase 25 U/L (17-59); Bilirubin,Total 0.9 mg/dl (0.2-1.3); Calcium 9.2 mg/dl (8.4-10.2); Carbon Dioxide 25 mmol/L (22.0-30.0); Chol/HDL Ratio 4.3 (1-3.5); Cholesterol 159 mg/dl (140-200); Creatinine Clearance Estimated 228 mL/min (50-200); Estimated Glomerular Filt Rate 122 ml/min (>60); GFR (African American) 148 ML/MIN (>60); Globulin 2.9 g/dL (1.3-3.2); Glucose 177 mg/dl (74-100); HDL Cholesterol 37 mg/dl (40-60); Total Protein,Serum 7.5 g/dl (6.3-8.2); Triglycerides 140 mg/dl (30-150); VLDL Cholesterol 28 mg/dL (0-40)
[2024-02-15 21:55] LABS: Activated Partial Thrombo Time 28.8 seconds (22.8-30.6); INR 1.07 (0.9-1.1); Prothrombin Time 11.9 seconds (10.1-12.5)
[2024-02-15 22:01] LABS: NT Pro Brain Natriuretic Pep. 2620 pg/mL (0-125)
[2024-02-15 22:04] LABS: Hemoglobin A1C 5.6 % (4.0-6.0); Troponin I 0.18 ng/ml (0.00-0.034)
[2024-02-15 22:09] LABS: T4 (Thyroxine) 6.2 ug/dl (5.53-11.0)
--- NOTE | 2024-02-15 22:21 | CT_ITS ---
PROCEDURE INFORMATION: Exam: CTA Chest With Contrast Exam date and time: 02/15/2024 10:33 PM Age: 43 years old Clinical indication: Shortness of breath; Additional info: Tachycardia, SOA, elevated bnp/trop, no effusion TECHNIQUE: Imaging protocol: Computed tomographic angiography of the chest with contrast. Exam focused on the arteries. 3D rendering (Not supervised by radiologist): MIP and/or 3D reconstructed images were created by the technologist. Radiation optimization: All CT scans at this facility use at least one of these dose optimization techniques: automated exposure control; mA and/or kV adjustment per patient size (includes targeted exams where dose is matched to clinical indication); or iterative reconstruction. Contrast material: ISOVUE; Contrast volume: 70 ml; Contrast route: INTRAVENOUS (IV); COMPARISON: 1. CR XR CHEST PORTABLE 02/15/2024 9:[address] abdomen pelvis wo con 09/28/2017 12:33 AM FINDINGS: Pulmonary arteries: There is no evidence for clinically relevant pulmonary arterial filling defect. Tiny distal filling defects may be present but are of dubious clinical significance. Aorta: Unremarkable. No aortic aneurysm. No aortic dissection. Lungs: There are scattered calcified granulomas in the lungs which most likely reflect prior granulomatous disease. Pleural spaces: Unremarkable. No pneumothorax. No pleural effusion. Heart: Unremarkable. No cardiomegaly. No pericardial effusion. Lymph nodes: There are calcified mediastinal lymph nodes likely reflecting prior granulomatous disease. Kidneys: Simple appearing left renal cyst. Bones/joints: Unremarkable. No acute fracture. Soft tissues: Unremarkable. Other findings: Motion artifact mildly limits evaluation. IMPRESSION: 1. No dense parenchymal consolidation, pleural effusion, or pneumothorax. 2. No evidence for clinically relevant pulmonary arterial filling defect. COMMENTS: Consistent with the [employer] [employer]'s Incidental Findings Committee white paper (J Am Do Radiol 2018): Any incidental renal lesion less than 1 cm or classified as too small to characterize, or any incidental cystic renal lesion characterized as simple-appearing, is likely benign. No follow-up imaging is recommended for these lesions per consensus recommendations based on imaging criteria.
[2024-02-15 22:22] LABS: Thyroid Stimulating Hormone 0.66 uIU/mL (0.465-4.68)
[2024-02-15] MEDS: 0.9 % SODIUM CHLORIDE 50 ML VIAL IV (22:33)
[2024-02-15] MEDS: IOPAMIDOL-370 (76%);100ML BOTTLE 70 ML IV (22:33)
[2024-02-15 22:34] LABS: D-Dimer 0.71 ug/mL (0.0-0.5)
[2024-02-15] MEDS: SODIUM CHLORIDE 0.9% 10ML SYR (RAD ONLY) 10 ML IV (22:34)
[2024-02-15 22:37] LABS: Magnesium 1.8 mg/dl (1.6-2.3)
--- NOTE | 2024-02-15 22:40 | ECG_ITS ---
APPROVED REPORT Exam: Resting ECG HR:128 bpm ECG Measurements Heart Rate 128 AXES HI 130 P 84 QRSd 88 QRS 120 QT 302 T 44 QTc 378 Conclusion SINUS TACHYCARDIA WITH FREQUENT SUPRAVENTRICULAR PREMATURE COMPLEXES POSSIBLE RIGHT VENTRICULAR HYPERTROPHY [SOME/ALL OF: PROMINENT R IN V1, LATE TRANSITION, RAD, ADRIEL, SSS] ABNORMAL ECG UNCONFIRMED REPORT Electronically signed by : TOO LAU, 02/17/2024 06:45:13
[2024-02-15 22:49] LABS: Anisocytosis 1+; Eosinophils % 2 % (0-3); Hypochromasia 1+; Lymphocytes % 12 % (10-50); Macrocytosis 1+; Microcytosis 1+; Monocytes % 7 % (2-9); Neutrophils % 78 % (42-76); Total Cells Counted 100
[2024-02-15 22:50] LABS: Platelet Estimate Normal
--- NOTE | 2024-02-15 22:56 | P.HP_ITS ---
History of Present Illness *Admission Date: 02/15/24 *Reason for visit:: Chest pain *History of present illness: Patient is a 43-year-old male with past medical history of asthma who presents to the hospital for chest pain dizziness. According to the patient he has been having shortness of breath along with chest pain, his chest pain is substernal, intermittent, worsens with mobility, denies associated nausea vomiting. Patient was noticed to have elevated troponin and was admitted for further evaluation. He denied fever chills diarrhea constipation dysuria. He also complains of generalized weakness fatigue and headaches. [facility] Disclaimer: The information contained in this section may have been updated after the patient was seen, as this information can be updated by other users. 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 (Updated 02/16/24 @ 05:09 by Virgil Moreira MD) Psoriasis History of back pain Asthma Family History (Updated 02/16/24 @ 00:44 by Lala Prince RN) Other Cancer of kidney Family history of acute heart failure Thyroid cancer Social History (Updated 02/16/24 @ 00:43 by Lala Prince RN) Smoking Status: Never smoker alcohol intake: never current occupational status: employed Travel in the last 8 weeks: None housing: house Other 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 Have you received the Flu Vaccine for this season: No Have you received the Pneumonia Vaccine: No Review of Systems Review of Systems Review of systems (narrative): documented as per HPI Meds Home Medications and Allergies Home Medications ?Medication ?Instructions ?Recorded ?Confirmed ?Type albuterol sulfate 90 mcg/actuation 2 puff inhalation Q6H PRN 01/15/21 02/16/24 Rx aerosol inhaler SOB/wheezing 7 days #6.7 grams New Prescriptions to Start Prescriptions: Allergies Allergy/AdvReac Type Severity Reaction Status Date / Time No Known Allergies Allergy Verified 02/27/21 15:58 Exam Data for Last 24 hours Vital signs and Labs for Last 24 Hours: Temp Pulse Resp BP Pulse Ox O2 Del Method 99 F 135 H 36 H 136/86 99 Room Air 02/15/24 20:47 02/15/24 20:47 02/15/24 21:31 02/15/24 20:47 02/15/24 20:47 02/15/24 20:47 Laboratory Results - last 24 hr 02/15/24 21:25: WBC 15.6 H, RBC 4.85, Hgb 14.3, Hct 43.1, MCV 88.8, MCH 29.5, MCHC 33.3, RDW 14.1, Plt Count 208, MPV 8.8, Neut % (Auto) 81.5 H, Lymph % (Auto) 9.0 L, [place] % (Auto) 8.3, Eos % (Auto) 0.6, Baso % (Auto) 0.6, Neut # (Auto) 12.7 H, Lymph # (Auto) 1.4, [place] # (Auto) 1.3 H, Eos # (Auto) 0.1, Baso # (Auto) 0.1, Total Counted 100, Neutrophils % (Manual) 78 H, Band Neutrophils % 1.0, Lymphocytes % (Manual) 12, Monocytes % (Manual) 7, Eosinophils % (Manual) 2, Platelet Estimate Normal, Hypochromasia 1+, Anisocytosis 1+, Microcytosis 1+, Macrocytosis 1+, PT 11.9, INR 1.07, APTT 28.8, D-Dimer 0.71 H, Sodium 135 L, Potassium 4.0, Chloride 99, Carbon Dioxide 25, Anion Gap 15.0, BUN 18, Creatinine 0.70, Estimated Creat Clear 228, Estimated GFR 122, Est GFR ( Amer) 148, Glucose 177 H, Hemoglobin A1c 5.6, Calcium 9.2, Magnesium 1.8, Total Bilirubin 0.9, AST 25, ALT 36, Alkaline Phosphatase 68, Troponin I 0.18 H, NT-Pro-B Natriuret Pep 2620 H, Total Protein 7.5, Albumin 4.6, Globulin 2.9, Albumin/Globulin Ratio 1.6, Triglycerides 140, Cholesterol 159, LDL Cholesterol Direct 81.80 L, VLDL Cholesterol 28, HDL Cholesterol 37 L, Cholesterol/HDL Ratio 4.3 H, TSH 0.66, Thyroxine (T4) 6.2 02/15/24 21:30: VBG pH 7.38, VBG pCO2 41.4, VBG pO2 38.4, VBG HCO3 23.9, VBG Total CO2 25.2, VBG O2 Saturation 74.7 H, VBG Base Excess -1.3, VBG Lactic Acid 2.7 H I & O for Last 24 hours: Intake & Output 02/12/24 02/13/24 02/14/2424 23:59 23:59 23:59 23:59 Weight 120.712 kg Constitutional Constitutional: no acute distress *Routine HEENT Exam Head: Present normocephalic Eye: Present EOMI and PERRL ENT: Present mucous membranes moist *Routine Neck Exam Neck: Present supple; Absent lymphadenopathy *Routine Respiratory Exam Respiratory: Present CTA bilaterally *Routine Cardiovascular Exam Cardiovascular: Present RRR *Routine Abdominal Exam Abdominal: Present soft and normoactive bowel sounds; Absent tenderness *Routine Rectal Exam Rectal:: deferred *Routine Genitalia Exam Genitalia:: deferred *Routine Extremities Exam Extremities: Absent cyanosis, clubbing or edema *Routine Skin Exam Skin: Present warm; Absent rash *Routine Neurological Exam Neurological: Present alert and oriented X3 Assessment and Plan *Assessment and plan (1) Chest pain: Status: Acute Category: Medical Code(s): R07.9 - Chest pain, unspecified (2) Elevated troponin: Status: Acute Category: Medical Code(s): R79.89 - Other specified abnormal findings of blood chemistry (3) Hyperglycemia: Status: Acute Category: Medical Code(s): R73.9 - Hyperglycemia, unspecified Plan Patient is a 43-year-old male with past medical history of asthma who presents to the hospital for chest pain dizziness. According to the patient he has been having shortness of breath along with chest pain, his chest pain is substernal, intermittent, worsens with mobility, denies associated nausea vomiting. Patient was noticed to have elevated troponin and was admitted for further evaluation. He denied fever chills diarrhea constipation dysuria. He also complains of generalized weakness fatigue and headaches. Assessment and plan Chest pain, elevated troponin, rule out ACS, consult for acute myocarditis Monitor on cardiac floral associate troponin Consult cardiology Order echocardiogram Aspirin, statin N.p.o. in anticipation for cardiology evaluation Asthma Resume home albuterol inhaler therapy Leukocytosis likely reactive Monitor Lactic acidosis Monitor Hyperglycemia Check A1c DVT prophylaxis-heparin
[2024-02-15 23:08] LABS: Procalcitonin 0.615 ng/mL (0.0-2.0)
[2024-02-15 23:09] LABS: HIV (1&2) Antibody Rapid NONREACTIVE (NONREACTIVE)
[2024-02-16] VITALS (25 sets, daily range): BP systolic 101–131; BP diastolic 44–76; PULSE 100–130; RESP 18–21; TEMP 36.7–38.7; O2SAT 93–99; BMI 37.2
--- NOTE | 2024-02-16 00:03 | PC.NURSE ---
Report called to Graciela
--- NOTE | 2024-02-16 00:07 | PC.NURSE ---
0000 Received phone report from Francoise RN/ED nurse. Patient is a 43 yo male. Diagnosis Cardiomyopathy. May transfer per W/C.
--- NOTE | 2024-02-16 00:30 | PC.NURSE ---
Patient arrived to floor via wheelchair from ED at 00:16.
[2024-02-16 01:03] LABS: Troponin I 0.16 ng/ml (0.00-0.034)
[2024-02-16 01:48] LABS: Reflex Lactic Add Lactic Reflex
[2024-02-16 02:52] LABS: Lactic Acid Follow Up (RFLX 1) 0.7 mmol/L (0.7-2.1)
[2024-02-16 03:04] LABS: Troponin I 0.15 ng/ml (0.00-0.034)
--- NOTE | 2024-02-16 04:54 | PC.NURSE ---
Patient has remained NPO for cardiology consult. lungs CTA. HR regular. Upper Chestwall tender on palpation. . Sinus Tachycardia on tele with PACs. Voids per urinal, urine concentrated. Low grade temp 99.8 otherwise vital signs stable.
--- NOTE | 2024-02-16 05:05 | CA_ITS ---
APPROVED REPORT EXAM: Comprehensive 2D, Doppler, and color-flow Echocardiogram Multiple Slide Operator: Jayne Gallegos CRT Ht: 5 ft 10 in Wt: 266lbs BSA: 2.36 BP: 136/86 mmHg Indications: Chest Pain, Shortness of Breath 2D Dimensions LA Volume 42.90 mL LA Volume Index 18.18 mL/m2 (M/F) 16-34 M-Mode Dimensions RVDd 3.17 cm (0.9-2.6) LA Diam 3.91 cm (1.9-4.0) LVDd 4.88 cm (3.5-5.7) LVDs 3.54 cm (3.5-5.7) IVSd 2.33 cm (0.6-1.1) PWd 1.00 cm (0.6-1.1) EF (Teich) 53.20% FS 27.50% EDV (Teich) 111.70 mL TAPSE 1.19 (<1.7) ESV (Teich) 52.30 mL LV Diastology E Decel Time 150 (160-240 msec) E/A Ratio 1.3 LAT A' 7.80 cm/s Aortic Valve AO Peak GR. 7.90 mmHg Mitral Valve MV E Max Bharath. 78.0 (40-130 cm/s) MV A Velocity 60.0 (40-130 cm/s) E/A Ratio 1.29 MV PHT 44.0 ms Pulmonary Valve PV Peak Velocity 135.0 (50-150 cm/s) Tricuspid Valve TR P. Velocity 202.00 cm/s RAP Estimate 10.00 mmHg RVSP 26.40 mmHg Left Ventricle The left ventricle is normal size. The left ventricular systolic function is mildly reduced. There is increased overall thickness. Mild global hypokinesis present. No regional wall motion abnormalities are noted. Grade 1 diastolic dysfunction is present. LVEF is 40-45%. Right Ventricle The right ventricle is normal size. Right ventricle is mildly hypokinetic. Atria The left atrium size is normal. The right atrium size is normal. There is no Doppler evidence of interatrial shunt. Aortic Valve The aortic valve opens well. There is no aortic valvular stenosis. No aortic regurgitation is present. Mitral Valve The mitral valve is normal in structure. No evidence of mitral valve stenosis. Trace mitral regurgitation. Tricuspid Valve The tricuspid valve leaflets are thin and pliable. Mild tricuspid regurgitation. RVSP is normal. Pulmonic Valve The pulmonary valve is normal in structure. Trace pulmonic regurgitation. Great Vessels The aortic root is normal in size. The ascending aorta is normal in size. IVC is normal in size and collapses >50% with inspiration. Pericardium There is no pericardial effusion. Other Information Study Quality: Fair Conclusion Mildly reduced LV systolic function (LVEF 40-45%). Mild global hypokinesis present. No regional wall motion abnormalities are noted. Mildly reduced RV function. Mild TR. Electronically signed by : Gia Salazar MD 02/16/2024 13:27:22
[2024-02-16 05:39] LABS: Chloride 100 mmol/L (98-107)
[2024-02-16 05:40] LABS: Potassium 4.1 mmoL/L (3.5-5.1); Sodium 136 mmol/L (136-145)
[2024-02-16 05:42] LABS: Blood Urea Nitrogen 14 mg/dl (9-20); Creatinine Clearance Estimated 228 mL/min (50-200); Estimated Glomerular Filt Rate 122 ml/min (>60); GFR (African American) 148 ML/MIN (>60); Lactic Acid 0.8 mmol/L (0.7-2.1)
[2024-02-16 05:43] LABS: Anion Gap 13.1 mEq/L (5-15); Calcium 8.7 mg/dl (8.4-10.2); Carbon Dioxide 27 mmol/L (22.0-30.0); Glucose 122 mg/dl (74-100)
[2024-02-16 05:57] LABS: Hemoglobin A1C 5.4 % (4.0-6.0)
[2024-02-16 07:45] LABS: Basophils # 0.1 K/mm3 (0-0.2); Basophils % 0.4 % (0.1-2.0); Eosinophils # 0.2 K/mm3 (0.0-0.4); Eosinophils % 1.3 % (0.1-12.0); Hematocrit 38.2 % (42.0-52.0); Hemoglobin 12.9 g/dL (14.1-18.0); Lymphocytes % 14.6 % (10-50); Mean Corpuscular HGB Conc 33.6 g/dL (31.8-35.4); Mean Corpuscular Hemoglobin 30.9 pg (27.0-31.2); Monocytes # 1.3 K/mm3 (0.1-1.0); Monocytes % 9.6 % (1.7-9.3); Neutrophils # 10.3 K/mm3 (1.8-7.8); Neutrophils % 74.1 % (37.0-80.0); Platelet Count 192 K/mm3 (142-424); Red Blood Count 4.15 M/mm3 (4.60-6.20); White Blood Count 13.9 K/mm3 (4.8-10.8)
--- NOTE | 2024-02-16 07:46 | EXP.PHA.CONS ---
Pharmacy Consult Date: 02/16/24 Time: 07:46 Referring provider: DR. RODRIGUEZ Reason for Consult:: VANCOMYCIN DOSING Allergies Allergy/AdvReac Type Severity Reaction Status Date / Time No Known Allergies Allergy Verified 02/27/21 15:58 Home Medications ?Medication ?Instructions ?Recorded ?Confirmed ?Type albuterol sulfate 90 mcg/actuation 2 puff inhalation Q6H PRN 01/15/21 02/16/24 Rx aerosol inhaler SOB/wheezing 7 days #6.7 grams New Prescriptions to Start Prescriptions: Height: 1.8 m Weight: 120.712 kg Laboratory Results:: Laboratory Results - last 24 hr 02/15/24 21:25: WBC 15.6 H, RBC 4.85, Hgb 14.3, Hct 43.1, MCV 88.8, MCH 29.5, MCHC 33.3, RDW 14.1, Plt Count 208, MPV 8.8, Neut % (Auto) 81.5 H, Lymph % (Auto) 9.0 L, [place] % (Auto) 8.3, Eos % (Auto) 0.6, Baso % (Auto) 0.6, Neut # (Auto) 12.7 H, Lymph # (Auto) 1.4, [place] # (Auto) 1.3 H, Eos # (Auto) 0.1, Baso # (Auto) 0.1, Total Counted 100, Neutrophils % (Manual) 78 H, Band Neutrophils % 1.0, Lymphocytes % (Manual) 12, Monocytes % (Manual) 7, Eosinophils % (Manual) 2, Platelet Estimate Normal, Hypochromasia 1+, Anisocytosis 1+, Microcytosis 1+, Macrocytosis 1+, PT 11.9, INR 1.07, APTT 28.8, D-Dimer 0.71 H, Sodium 135 L, Potassium 4.0, Chloride 99, Carbon Dioxide 25, Anion Gap 15.0, BUN 18, Creatinine 0.70, Estimated Creat Clear 228, Estimated GFR 122, Est GFR ( Amer) 148, Glucose 177 H, Hemoglobin A1c 5.6, Calcium 9.2, Magnesium 1.8, Total Bilirubin 0.9, AST 25, ALT 36, Alkaline Phosphatase 68, Troponin I 0.18 H, NT-Pro-B Natriuret Pep 2620 H, Total Protein 7.5, Albumin 4.6, Globulin 2.9, Albumin/Globulin Ratio 1.6, Triglycerides 140, Cholesterol 159, LDL Cholesterol Direct 81.80 L, VLDL Cholesterol 28, HDL Cholesterol 37 L, Cholesterol/HDL Ratio 4.3 H, Procalcitonin 0.615, TSH 0.66, Thyroxine (T4) 6.2, HIV 1&2 Antibody Rapid Nonreactive 02/15/24 21:30: VBG pH 7.38, VBG pCO2 41.4, VBG pO2 38.4, VBG HCO3 23.9, VBG Total CO2 25.2, VBG O2 Saturation 74.7 H, VBG Base Excess -1.3, VBG Lactic Acid 2.7 H 02/16/24 00:28: Troponin I 0.16 H 02/16/24 02:35: Lactate 0.7, Troponin I 0.15 H 02/16/24 05:25: Sodium 136, Potassium 4.1, Chloride 100, Carbon Dioxide 27, Anion Gap 13.1, BUN 14, Creatinine 0.70, Estimated Creat Clear 228, Estimated GFR 122, Est GFR ( Amer) 148, Glucose 122 H D, Hemoglobin A1c 5.4, Lactate 0.8, Calcium 8.7 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: 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 (Updated 02/16/24 @ 05:09 by Virgil Moreira MD) Psoriasis History of back pain Asthma Assessment and Plan Assessment and plan all Dx Assessment and Plan for all problems:: Pharmacokinetic dosing service Objective: Patient: Floor: Age: 43 yo Serum creatinine: 0.9 mg/dL Height: 70.9 Inches Weight (kg): 120.7 Assessment: IBW (kg): 75.07 Dosing wt(kg): 120.7 Estimated Creatinine clearance (ml/min): 110.1 CRCL method: Cockcroft and Gault using ibw(default). Drug selected: Vancomycin Loading dose (mg): 0 Vd (liters): 96.6 (factor used: 0.8 L/kg) Kirill (hr-1): 0.096 Half life (hrs): 7.22 Recommended dose: 1750 mg Interval: 8 hrs Infusion time (hrs): 2.0 Predicted peak (mcg/mL): 30.7 Predicted trough (mcg/mL): 17.26 Total body weight is being used for vancomycin dosing. Recommendations: Give Vancomycin 1750 mg q 8 hrs with an expected Cpeak of 30.7 mcg/ml and an expected Ctrough of 17.26 mcg/ml ----Vanco only - ignore for aminoglycosides----- CLvanco= 9.27 L/hr AUC 0-24 /KRISTOPHER Data: KRISTOPHER 0.5 mcg/mL: AUC/KRISTOPHER: 1132.7 KRISTOPHER 1.0 mcg/mL: AUC/KRISTOPHER: 566.3 --------- KRISTOPHER 1.5 mcg/mL: AUC/KRISTOPHER: 377.6 KRISTOPHER 2.0 mcg/mL: AUC/KRISTOPHER: 283.2
[2024-02-16 07:48] LABS: Albumin Level 3.9 g/dl (3.5-5.0)
[2024-02-16 07:51] LABS: Alanine Aminotransferase 26 U/L (12-78); Alkaline Phosphatase 62 U/L (38-126); Aspartate Amino Transferase 25 U/L (17-59); Bilirubin,Direct 0.1 mg/dl (0.0-0.4); Bilirubin,Indirect 0.6 mg/dL (0.0-0.9); Bilirubin,Total 0.7 mg/dl (0.2-1.3); Bilirubin,Unconjugated 0.6 mg/dL (0.0-1.1); Total Protein,Serum 6.4 g/dl (6.3-8.2)
[2024-02-16] MEDS: HEPARIN SODIUM 5,000 UNIT/ML VIAL 5000 UNIT SQ ×2 (08:09→20:21)
[2024-02-16] MEDS: ASPIRIN EC 81MG TABLET 81 MG PO (08:09)
[2024-02-16] MEDS: 0.9 % SODIUM CHLORIDE 1000ML 500 ML 250 ML IV (08:10)
[2024-02-16] MEDS: CEFEPIME HCL 2 GM in 0.9 % SODIUM CHLORIDE 100 ML IV ×3 (08:10→23:36)
--- NOTE | 2024-02-16 08:43 | HMH.PHAINT1 ---
Pharmacy Intervention Comments: Home medications verified using list from pharmacy and patient interview.
[2024-02-16] MEDS: VANCOMYCIN HCL 1,750 MG in 0.9 % SODIUM CHLORIDE 250 ML 125 MG IV ×2 (08:45→16:41)
--- NOTE | 2024-02-16 10:56 | P.CONCA_ITS ---
History of Present Illness History of Present Illness Consult date: 02/16/24 Requesting physician: Serafin Diamond Consult reason: congestive heart failure Chief complaint: SOA and C History of present illness: 43-year-old white male without known cardiovascular disease but a strong family history of premature congestive heart failure presented to the emergency room with complaint of headache dizziness shortness of breath and pleuritic chest pain. He states the chest pain started suddenly and feels like pleurisy which he has had previously. States he is not currently in asthma exacerbation and he has no wheezing on exam. Has felt more short of breath ambulating recently. Denies orthopnea and lower extremity edema. In the emergency room white blood cell count 15,000, D-dimer 0.71 but CTA was negative for PE and effusion. Troponin 0.18, 0.16, 0.15. EKG showed sinus tachycardia 140 bpm, subsequent EKG was sinus tachycardia 128 bpm without obvious ischemia or ectopy. proBNP was 2620. Bedside echo by ER physician showed reduced EF and patient was admitted for possible myocarditis. He was started on aspirin statin and heparin drip. This morning patient is lying flat comfortably and states he has mild lingering pleuritic chest pain worse with deep breathing. Formal 2D echo is pending. Patient denies tobacco alcohol and drug use. [facility] Disclaimer: The information contained in this section may have been updated after the patient was seen, as this information can be updated by other users. 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 Psoriasis History of back pain Asthma Family History Other Cancer of kidney Family history of acute heart failure Thyroid cancer Social History Smoking Status: Never smoker alcohol intake: never current occupational status: employed Travel in the last 8 weeks: None housing: house Review of Systems Constitutional Constitutional: Denies fatigue and Reports weakness Eyes Eyes: Denies loss of vision ENT Ears, Nose, Mouth, and Throat: Denies hearing loss and Denies vertigo *Cardiovascular Cardiovascular: Reports chest pain, Reports dyspnea and Denies syncope *Respiratory Respiratory: Denies cough, Reports dyspnea and Denies wheezing *Gastrointestinal Gastrointestinal: Denies change in stool character, Denies nausea and Denies vomiting *Genitourinary Genitourinary: Denies difficulty urinating *Musculoskeletal Musculoskeletal: Denies muscle weakness Integumentary/Breasts Skin/Breast: Denies changing lesions *Neurologic Neurologic: Denies loss of vision, Denies syncope, Denies vertigo and Reports weakness Endocrine Endocrine: Denies fatigue Allergic/Immunologic Allergic/Immunologic: Denies wheezing Exam Data for Last 24 hours Vital signs and Labs for Last 24 Hours: Temp Pulse Resp BP Pulse Ox O2 Del Method 98.5 F 110 H 20 116/66 94 L Room Air 02/16/24 07:46 02/16/24 08:06 02/16/24 07:46 02/16/24 07:46 02/16/24 07:46 02/16/24 08:22 Laboratory Results - last 24 hr 02/15/24 21:25: WBC 15.6 H, RBC 4.85, Hgb 14.3, Hct 43.1, MCV 88.8, MCH 29.5, MCHC 33.3, RDW 14.1, Plt Count 208, MPV 8.8, Neut % (Auto) 81.5 H, Lymph % (Auto) 9.0 L, [place] % (Auto) 8.3, Eos % (Auto) 0.6, Baso % (Auto) 0.6, Neut # (Auto) 12.7 H, Lymph # (Auto) 1.4, [place] # (Auto) 1.3 H, Eos # (Auto) 0.1, Baso # (Auto) 0.1, Total Counted 100, Neutrophils % (Manual) 78 H, Band Neutrophils % 1.0, Lymphocytes % (Manual) 12, Monocytes % (Manual) 7, Eosinophils % (Manual) 2, Platelet Estimate Normal, Hypochromasia 1+, Anisocytosis 1+, Microcytosis 1+, Macrocytosis 1+, PT 11.9, INR 1.07, APTT 28.8, D-Dimer 0.71 H, Sodium 135 L, Potassium 4.0, Chloride 99, Carbon Dioxide 25, Anion Gap 15.0, BUN 18, Creatinine 0.70, Estimated Creat Clear 228, Estimated GFR 122, Est GFR ( Amer) 148, Glucose 177 H, Hemoglobin A1c 5.6, Calcium 9.2, Magnesium 1.8, Total Bilirubin 0.9, AST 25, ALT 36, Alkaline Phosphatase 68, Troponin I 0.18 H, NT-Pro-B Natriuret Pep 2620 H, Total Protein 7.5, Albumin 4.6, Globulin 2.9, Albumin/Globulin Ratio 1.6, Triglycerides 140, Cholesterol 159, LDL Cholesterol Direct 81.80 L, VLDL Cholesterol 28, HDL Cholesterol 37 L, Cholesterol/HDL Ratio 4.3 H, Procalcitonin 0.615, TSH 0.66, Thyroxine (T4) 6.2, HIV 1&2 Antibody Rapid Nonreactive 02/15/24 21:30: VBG pH 7.38, VBG pCO2 41.4, VBG pO2 38.4, VBG HCO3 23.9, VBG Total CO2 25.2, VBG O2 Saturation 74.7 H, VBG Base Excess -1.3, VBG Lactic Acid 2.7 H 02/16/24 00:28: Troponin I 0.16 H 02/16/24 02:35: Lactate 0.7, Troponin I 0.15 H 02/16/24 05:25: WBC 13.9 H, RBC 4.15 L, Hgb 12.9 L, Hct 38.2 L, MCV 92.0, MCH 30.9, MCHC 33.6, RDW 14.0, Plt Count 192, MPV 9.0, Neut % (Auto) 74.1, Lymph % (Auto) 14.6, [place] % (Auto) 9.6 H, Eos % (Auto) 1.3, Baso % (Auto) 0.4, Neut # (Auto) 10.3 H, Lymph # (Auto) 2.0, [place] # (Auto) 1.3 H, Eos # (Auto) 0.2, Baso # (Auto) 0.1, Sodium 136, Potassium 4.1, Chloride 100, Carbon Dioxide 27, Anion Gap 13.1, BUN 14, Creatinine 0.70, Estimated Creat Clear 228, Estimated GFR 122, Est GFR ( Amer) 148, Glucose 122 H D, Hemoglobin A1c 5.4, Lactate 0.8, Calcium 8.7, Total Bilirubin 0.7, Direct Bilirubin 0.1, Conjugated Bilirubin 0.0, Indirect Bilirubin 0.6, Unconjugated Bilirubin 0.6, AST 25, ALT 26 D, Alkaline Phosphatase 62, Total Protein 6.4, Albumin 3.9 D I & O for Last 24 hours: Intake & Output 02/13/24 02/14/24 02/15/24 02/16/24 23:59 23:59 23:59 23:59 Intake Total 850 / 850 Output Total 400 / 400 Balance 450 / 450 Weight 266 lb 2 oz 266 lb 1.99 oz Constitutional Constitutional: no acute distress, obese and cooperative *Routine HEENT Exam Eye: Present PERRL *Routine Respiratory Exam Respiratory: Present CTA bilaterally; Absent accessory muscle use, wheezes or crackles *Routine Cardiovascular Exam Cardiovascular: Present RRR, Normal S1 and Normal S2; Absent murmur, gallop or rubs *Routine Abdominal Exam Abdominal: Present soft; Absent tenderness *Routine Extremities Exam Extremities: Present pulses intact; Absent cyanosis or edema *Routine Skin Exam Skin: Present intact; Absent erythema or wounds *Routine Neurological Exam Neurological: Present alert and oriented X3 Routine Psychiatric Exam Psychiatric: Present cooperative Meds Home Medications and Allergies Home Medications ?Medication ?Instructions ?Recorded ?Confirmed ?Type albuterol sulfate 90 mcg/actuation 2 puff inhalation Q6H PRN 01/15/21 02/16/24 Rx aerosol inhaler SOB/wheezing 7 days #6.7 grams fluticasone 250 mcg-salmeterol 50 1 inh inhalation BID 02/16/24 02/16/24 History mcg/dose blistr powdr for inhalation (Advair Diskus) New Prescriptions to Start Prescriptions: Allergies Allergy/AdvReac Type Severity Reaction Status Date / Time No Known Allergies Allergy Verified 02/27/21 15:58 Assessment and Plan *Assessment and plan (1) NSTEMI (non-ST elevated myocardial infarction): Status: Acute Category: Medical Code(s): I21.4 - Non-ST elevation (NSTEMI) myocardial infarction (2) Heart failure, unspecified: Status: Acute Category: Medical Code(s): I50.9 - Heart failure, unspecified Plan NSTEMI - MARTIN, SOA, Elevated Troponin and Tachycardia - Cont ASA, Statin, Heparin - ECHO pending - [facility] today Cardiomyopathy Unspecified - MARTIN, ProBNP 2,620, reduced EF on bedside ECHO in ED - No pulm edema orthopnea or LE Edema - Pt's father and Grandfather had HF. Father had CHF in his 30s or 40s - 2D ECHO pending, will adjust meds pending results Asthma - lungs clear on exam Obesity, BMI 37 - needs aggressive weight loss via diet and exercise, can readdress outpatient CV stable, further plans pending results of ECHO and LHC.
--- NOTE | 2024-02-16 11:58 | IR_ITS ---
APPROVED REPORT Patient Location: Inpatient PROCEDURES Left heart catheterization Left ventriculogram Selective coronary angiogram INDICATION Acute non-ST elevation myocardial infarction Informed consent was obtained prior to the procedure. COMPLICATIONS NONE Estimated Blood Loss: LESS THAN 10 ML TECHNIQUE One percent lidocaine used to anesthetize the right anterior aspect of the wrist. The right radial artery was accessed via the Seldinger technique. A 6 [place] sheath was placed in the right radial artery. 2.5 mg of Verapamil, 800 mcg of nitroglycerin, 1mg Lidocaine and 5000 U Heparin were given through the arterial sheath. The papa catheter was also used to perform left heart catheterization, left ventriculogram and selective coronary angiogram. At the end of the procedure the sheath was removed good hemostasis was achieved using Traclet band, patient was transferred to the postop holding area in stable condition. ANGIOGRAPHIC RESULTS The left main artery Normal The left anterior descending artery Normal The circumflex artery Dominant normal The right coronary artery Nondominant normal The DIOP ventriculogram reveals Horizontal heart with reduced ejection fraction estimated 45% mild anterior wall hypokinesis The left ventricular end-diastolic pressure 30 mmHg IMPRESSION Normal coronary arteries Reduced ejection fraction with regional wall motion abnormality Elevated LVEDP PLAN 1. Consider cardiac MRI 2. Standard therapy for reduced ejection fraction Electronically signed by : Travis Boggs MD 02/16/2024 15:40:12
[2024-02-16 12:16] LABS: Microscopic, Urine URINE MICROSCOPIC (MICROSCOPIC)
[2024-02-16 12:20] LABS: Appearance,Urine CLEAR (Clear); Blood, Urine 1+ (Negative); Color,Urine YELLOW (Yellow); Glucose,Urine (UA) Negative (Negative); Ketones,Urine 2+ (Negative); Leukocyte Esterase,Urine Negative (Negative); Nitrate,Urine Negative (Negative); Protein,Urine 1+ (Negative); Specific Gravity, Urine >= 1.030 (1.005-1.030); Urobilinogen,Urine 0.2 EU/dl (0.2)
[2024-02-16 12:31] LABS: Bacteria,Urine Trace /lpf; Bilirubin,Urine 1+ (Negative); Squamous Epithelial Cell,Urine Occasional #/hpf (0-5); WBC,Urine Occasional #/hpf (0-3)
[2024-02-16 12:33] LABS: Barbiturates Screen,Urine Negative ng/ml (<200)
[2024-02-16 12:34] LABS: Amphetamine/Metha Screen,Urine Negative ng/ml (<1000); Benzodiazepines Screen,Urine Negative ng/ml (<200)
[2024-02-16 12:35] LABS: Cannabinoid Screen,Urine Negative ng/ml (<50)
[2024-02-16 12:36] LABS: Cocaine Screen,Urine Negative ng/ml (<300); Methadone Screen,Urine Negative ng/ml (<300)
[2024-02-16 12:37] LABS: Opiate Screen,Urine Negative ng/ml (<300)
[2024-02-16 12:38] LABS: Phencyclidine Screen,Urine Negative ng/ml (<25)
--- NOTE | 2024-02-16 14:25 | PC.NURSE ---
Aox 4, up ad vikas, uses urinal, 90's on RA, 20G r AC SL, no complaints of any pain at this time.
--- NOTE | 2024-02-16 14:59 | P.PN_ITS ---
Subjective *Date: 02/16/24 *Time: 15:06 Interval history: Patient was lying in bed comfortably this morning without acute concerns or distress. He states he was generally not feeling well over the past 2 days, especially yesterday at work. He then began to have what he describes as pleu ritic chest pain, chest pain with inspiration at which point he proceeded to the ED. He continues to have mild pleuritic chest pain. No shortness of breath Exam Data for Last 24 hours Vital signs and Labs for Last 24 Hours: Temp Pulse Resp BP Pulse Ox O2 Del Method 100 F H 117 H 21 119/68 95 Room Air 02/16/24 12:00 02/16/24 12:00 02/16/24 12:00 02/16/24 12:00 02/16/24 12:00 02/16/24 14:09 Laboratory Results - last 24 hr 02/15/24 21:25: WBC 15.6 H, RBC 4.85, Hgb 14.3, Hct 43.1, MCV 88.8, MCH 29.5, MCHC 33.3, RDW 14.1, Plt Count 208, MPV 8.8, Neut % (Auto) 81.5 H, Lymph % (Auto) 9.0 L, [place] % (Auto) 8.3, Eos % (Auto) 0.6, Baso % (Auto) 0.6, Neut # (Auto) 12.7 H, Lymph # (Auto) 1.4, [place] # (Auto) 1.3 H, Eos # (Auto) 0.1, Baso # (Auto) 0.1, Total Counted 100, Neutrophils % (Manual) 78 H, Band Neutrophils % 1.0, Lymphocytes % (Manual) 12, Monocytes % (Manual) 7, Eosinophils % (Manual) 2, Platelet Estimate Normal, Hypochromasia 1+, Anisocytosis 1+, Microcytosis 1+, Macrocytosis 1+, PT 11.9, INR 1.07, APTT 28.8, D-Dimer 0.71 H, Sodium 135 L, Potassium 4.0, Chloride 99, Carbon Dioxide 25, Anion Gap 15.0, BUN 18, Creatinine 0.70, Estimated Creat Clear 228, Estimated GFR 122, Est GFR ( Amer) 148, Glucose 177 H, Hemoglobin A1c 5.6, Calcium 9.2, Magnesium 1.8, Total Bilirubin 0.9, AST 25, ALT 36, Alkaline Phosphatase 68, Troponin I 0.18 H, NT-Pro-B Natriuret Pep 2620 H, Total Protein 7.5, Albumin 4.6, Globulin 2.9, Albumin/Globulin Ratio 1.6, Triglycerides 140, Cholesterol 159, LDL Cholesterol Direct 81.80 L, VLDL Cholesterol 28, HDL Cholesterol 37 L, Cholesterol/HDL Ratio 4.3 H, Procalcitonin 0.615, TSH 0.66, Thyroxine (T4) 6.2, HIV 1&2 Antibody Rapid Nonreactive 02/15/24 21:30: VBG pH 7.38, VBG pCO2 41.4, VBG pO2 38.4, VBG HCO3 23.9, VBG Total CO2 25.2, VBG O2 Saturation 74.7 H, VBG Base Excess -1.3, VBG Lactic Acid 2.7 H 02/16/24 00:28: Troponin I 0.16 H 02/16/24 02:35: Lactate 0.7, Troponin I 0.15 H 02/16/24 05:25: WBC 13.9 H, RBC 4.15 L, Hgb 12.9 L, Hct 38.2 L, MCV 92.0, MCH 30.9, MCHC 33.6, RDW 14.0, Plt Count 192, MPV 9.0, Neut % (Auto) 74.1, Lymph % (Auto) 14.6, [place] % (Auto) 9.6 H, Eos % (Auto) 1.3, Baso % (Auto) 0.4, Neut # (Auto) 10.3 H, Lymph # (Auto) 2.0, [place] # (Auto) 1.3 H, Eos # (Auto) 0.2, Baso # (Auto) 0.1, Sodium 136, Potassium 4.1, Chloride 100, Carbon Dioxide 27, Anion Gap 13.1, BUN 14, Creatinine 0.70, Estimated Creat Clear 228, Estimated GFR 122, Est GFR ( Amer) 148, Glucose 122 H D, Hemoglobin A1c 5.4, Lactate 0.8, Calcium 8.7, Total Bilirubin 0.7, Direct Bilirubin 0.1, Conjugated Bilirubin 0.0, Indirect Bilirubin 0.6, Unconjugated Bilirubin 0.6, AST 25, ALT 26 D, Alkaline Phosphatase 62, Total Protein 6.4, Albumin 3.9 D 02/16/24 12:05: Urine Color Yellow, Urine Appearance Clear, Urine pH 6.0, Ur Specific [place] >= 1.030, Urine Protein 1+ A, Urine Glucose (UA) Negative, Urine Ketones 2+, Urine Blood 1+ A, Urine Nitrate Negative, Urine Bilirubin 1+ A , Urine Urobilinogen 0.2, Ur Leukocyte Esterase Negative, Urine RBC None, Urine WBC Occasional, Ur Squamous Epith Cells Occasional, Urine Bacteria Trace, Urine Opiates Screen Negative, Urine Methadone Screen Negative, Ur Barbituates Screen Negative, Ur Phencyclidine Scrn Negative, Ur Amphetamines Screen Negative, U Benzodiazepines Scrn Negative, Urine Cocaine Screen Negative, U Marijuana (THC) Screen Negative I & O for Last 24 hours: Intake & Output 02/13/24 02/14/24 02/15/24 02/16/24 23:59 23:59 23:59 23:59 Intake Total 850 / 850 Output Total 700 / 700 Balance 150 / 150 Weight 120.712 kg 120.712 kg Constitutional Constitutional: no acute distress and obese *Routine HEENT Exam Head: Present normocephalic Eye: Present EOMI and PERRL ENT: Present mucous membranes moist *Routine Neck Exam Neck: Present supple; Absent lymphadenopathy *Routine Respiratory Exam Respiratory: Present CTA bilaterally *Routine Cardiovascular Exam Cardiovascular: Present tachycardia *Routine Abdominal Exam Abdominal: Present soft and normoactive bowel sounds; Absent tenderness *Routine Extremities Exam Extremities: Absent cyanosis, clubbing or edema *Routine Skin Exam Skin: Present warm; Absent rash *Routine Neurological Exam Neurological: Present alert and oriented X3 Assessment and Plan *Assessment and plan (1) Chest pain: Status: Acute Category: Medical Code(s): R07.9 - Chest pain, unspecified (2) Elevated troponin: Status: Acute Category: Medical Code(s): R79.89 - Other specified abnormal findings of blood chemistry (3) Hyperglycemia: Status: Acute Category: Medical Code(s): R73.9 - Hyperglycemia, unspecified Plan Patient is a 43-year-old male with past medical history of asthma who presents to the hospital for chest pain dizziness. According to the patient he has been having shortness of breath along with chest pain, his chest pain is substernal, intermittent, worsens with mobility, denies associated nausea vomiting. Patient was noticed to have elevated troponin and was admitted for further evaluation. He denied fever chills diarrhea constipation dysuria. He also complains of generalized weakness fatigue and headaches. Assessment and plan Chest pain, elevated troponin, rule out ACS, consult for acute myocarditis #NSTEMI #Elevated troponins ? Patient presented with generalized weakness, dizziness, and chest pain. ? Initial troponin 0.18, did trend down to 0.15. EKG did not show acute ischemic findings. ? D-dimer 0.71, CTA unremarkable for PE. ? BNP 2620 but no signs of fluid overload. ? ECHO revealed LVEF 40 to 45%, mild global hypokinesis. ? Cardiology consulted, plan for [facility] today. ? Aspirin, statin. ? Cardiac telemetry. #Leukocytosis #Tachycardia ? Presented with WBC 15.6, improved to 13.9 without antibiotic. ? Patient is having low-grade fevers 100 Fahrenheit. Tachycardia 117. ? CTA, UA unremarkable for infectious signs. UDS negative. ? Follow-up blood cultures. ? IV vancomycin, Zosyn for empiric coverage. Asthma Ipratropium as needed. Hyperglycemia Check A1c DVT prophylaxis-heparin
[2024-02-16] MEDS: VERAPAMIL 2.5MG/ML 2ML VIAL 2.5 MG IV (15:13)
[2024-02-16] MEDS: LIDOCAINE 1% 10ML MDV 20 ML IJ (15:13)
[2024-02-16] MEDS: HEPARIN 1,000 UNITS/ML 10ML VIAL (CATH LAB) 10000 UNIT IV (15:13)
[2024-02-16] MEDS: HEPARIN 1,000 UNITS/500ML NS (CATH LAB) 3000 UNIT IV (15:14)
[2024-02-16] MEDS: diphenhydrAMINE 50MG/ML VIAL 50 MG IV (15:14)
[2024-02-16] MEDS: NITROGLYCERIN 800MCG/8ML SYR (CATH LAB) 800 MCG IA (15:14)
[2024-02-16] MEDS: 0.9 % SODIUM CHLORIDE 500 ML 25 ML IV (15:14)
--- NOTE | 2024-02-16 15:47 | SUR.PHASEII ---
PATIENT TAKEN TO FLOOR FROM LAB, REPORT TO BELLA ORTEGA. NO SEDATION GIVEN.
[2024-02-16] MEDS: IOPAMIDOL-370 (76%);100ML BOTTLE 60 ML IV (16:05)
[2024-02-16] MEDS: ATORVASTATIN 40MG TABLET 40 MG PO (20:22)
--- NOTE | 2024-02-16 22:53 | PC.NURSE ---
44 yo male S/P cardiac cath this AM spiking fever of 101.[address] aSndy called and voice message left .
--- NOTE | 2024-02-16 23:21 | PC.NURSE ---
Contacted Dr Sandy re fever. To order blood cultures and Tylenol.
[2024-02-16] MEDS: ACETAMINOPHEN 500MG TAB 500 MG PO (23:31)
[2024-02-17] VITALS (8 sets, daily range): BP systolic 103–130; BP diastolic 46–82; PULSE 72–123; RESP 16–18; TEMP 37–38.4; O2SAT 94–97; BMI 37.2
--- NOTE | 2024-02-17 00:04 | PC.NURSE ---
Received Tylenol 500 mg po at 2331 for temp 101.7 oral. . Temp at 0005 is 100.3 oral. Receiving Cefipime IV to be followed by Vancomycin IV as ordered. Blood culture results pending.
[2024-02-17 00:26] LABS: Lactic Acid 0.7 mmol/L (0.7-2.1)
[2024-02-17] MEDS: VANCOMYCIN HCL 1,750 MG in 0.9 % SODIUM CHLORIDE 250 ML 125 MG IV ×3 (00:26→17:42)
[2024-02-17] MEDS: ACETAMINOPHEN 500MG TAB 500 MG PO ×3 (04:32→20:03)
--- NOTE | 2024-02-17 04:59 | PC.NURSE ---
Fever 101.2 , medicated with Tylenol 500 mg po at 0415. Blood cultures pending. Fluids encouraged. No C/O chest pain, SOA, or discomfort. No cough. S/P cardiac cath 02/15 no stents needed. Drsg to right wrist C/D/I. Has been in Sinus Tachycardia since admission.
[2024-02-17 05:14] LABS: HCV Ab Non Reactive (Non Reactive)
[2024-02-17] MEDS: CEFEPIME HCL 2 GM in 0.9 % SODIUM CHLORIDE 100 ML IV ×2 (07:35→16:20)
[2024-02-17 07:47] LABS: Basophils # 0.1 K/mm3 (0-0.2); Basophils % 0.3 % (0.1-2.0); Eosinophils # 0.3 K/mm3 (0.0-0.4); Hematocrit 38.9 % (42.0-52.0); Hemoglobin 12.8 g/dL (14.1-18.0); Lymphocytes # 1.7 K/mm3 (0.7-4.5); Lymphocytes % 13.1 % (10-50); Mean Corpuscular HGB Conc 32.8 g/dL (31.8-35.4); Mean Corpuscular Hemoglobin 30.5 pg (27.0-31.2); Mean Corpuscular Volume 92.9 fl (80-94); Mean Platelet Volume 7.5 fl (7.4-10.4); Monocytes # 0.8 K/mm3 (0.1-1.0); Monocytes % 6.3 % (1.7-9.3); Neutrophils # 10.3 K/mm3 (1.8-7.8); Neutrophils % 78.3 % (37.0-80.0); Platelet Count 172 K/mm3 (142-424); Red Blood Count 4.19 M/mm3 (4.60-6.20); Red Cell Distribution Width 13.8 % (11.5-17.5); White Blood Count 13.2 K/mm3 (4.8-10.8)
[2024-02-17 07:51] LABS: Albumin Level 3.8 g/dl (3.5-5.0); Chloride 103 mmol/L (98-107); Sodium 137 mmol/L (136-145)
[2024-02-17 07:52] LABS: Potassium 3.7 mmoL/L (3.5-5.1)
[2024-02-17 07:54] LABS: Alanine Aminotransferase 25 U/L (12-78); Alkaline Phosphatase 67 U/L (38-126); Anion Gap 12.7 mEq/L (5-15); Aspartate Amino Transferase 20 U/L (17-59); Bilirubin,Direct 0.1 mg/dl (0.0-0.4); Bilirubin,Indirect 0.8 mg/dL (0.0-0.9); Bilirubin,Total 0.9 mg/dl (0.2-1.3); Bilirubin,Unconjugated 0.8 mg/dL (0.0-1.1); Blood Urea Nitrogen 10 mg/dl (9-20); Carbon Dioxide 25 mmol/L (22.0-30.0); Creatinine Clearance Estimated 315 mL/min (50-200); Estimated Glomerular Filt Rate 179 ml/min (>60); GFR (African American) 217 ML/MIN (>60); Total Protein,Serum 6.4 g/dl (6.3-8.2)
[2024-02-17 07:55] LABS: Calcium 8.7 mg/dl (8.4-10.2); Glucose 118 mg/dl (74-100)
[2024-02-17] MEDS: ASPIRIN EC 81MG TABLET 81 MG PO (08:58)
[2024-02-17] MEDS: HEPARIN SODIUM 5,000 UNIT/ML VIAL 5000 UNIT SQ ×2 (08:58→20:03)
[2024-02-17 09:09] LABS: Adenovirus,PCR Not Detected (NotDetected); Bordetella Pertussis Not Detected (NotDetected); Chlamydophila Pneumoniae, PCR Not Detected (NotDetected); Coronavirus 19, PCR Not Detected (NotDetected); Coronavirus 229E Not Detected (NotDetected); Coronavirus NL63 Not Detected (NotDetected); Coronavirus OC43 Not Detected (NotDetected); Coronovirus HKU1,PCR Not Detected (NotDetected); Human Metapneumovirus Not Detected (NotDetected); Influenza A, PCR Not Detected (NotDetected); Influenza AH1, 2009 Not Detected (NotDetected); Influenza AH1, PCR Not Detected (NotDetected); Influenza AH3,PCR Not Detected (NotDetected); Influenza B, PCR Not Detected (NotDetected); Mycoplasma Pneumoniae, PCR Not Detected (NotDetected); Parainfluenza 1, PCR Not Detected (NotDetected); Parainfluenza 2, PCR Not Detected (NotDetected); Parainfluenza 3, PCR Not Detected (NotDetected); Parainfluenza 4, PCR Not Detected (NotDetected); Respiratory Syncytial Virus Not Detected (NotDetected); Rhinovirus/Enterovirus Not Detected (NotDetected)
--- NOTE | 2024-02-17 10:07 | P.PN_ITS ---
Subjective Subjective Date: 02/17/24 Time: 09:00 Interval history: [facility] [place] yesterday - normal coronaries. Pt tolerated well. Has temp today to 101.7, WBC 15.6, Tachy 120 - developing sepsis. Resp PCR sent and pending. Exam Data for Last 24 hours Vital signs and Labs for Last 24 Hours: Temp Pulse Resp BP Pulse Ox O2 Del Method 99.5 F 108 H 18 117/63 95 Room Air 02/17/24 08:00 02/17/24 08:00 02/17/24 08:00 02/17/24 08:00 02/17/24 08:00 02/17/24 09:00 Laboratory Results - last 24 hr 02/15/24 21:25: Hepatitis C Antibody Non reactive 02/16/24 00:02: Lactate 0.7 02/16/24 12:05: Urine Color Yellow, Urine Appearance Clear, Urine pH 6.0, Ur Sp ecific [place] >= 1.030, Urine Protein 1+ A, Urine Glucose (UA) Negative, Urine Ketones 2+, Urine Blood 1+ A, Urine Nitrate Negative, Urine Bilirubin 1+ A, Urine Urobilinogen 0.2, Ur Leukocyte Esterase Negative, Urine RBC None, Urine WBC Occasional, Ur Squamous Epith Cells Occasional, Urine Bacteria Trace, Urine Opiates Screen Negative, Urine Methadone Screen Negative, Ur Barbituates Screen Negative, Ur Phencyclidine Scrn Negative, Ur Amphetamines Screen Negative, U Benzodiazepines Scrn Negative, Urine Cocaine Screen Negative, U Marijuana (THC) Screen Negative 02/17/24 07:34: WBC 13.2 H, RBC 4.19 L, Hgb 12.8 L, Hct 38.9 L, MCV 92.9, MCH 30.5, MCHC 32.8, RDW 13.8, Plt Count 172, MPV 7.5, Neut % (Auto) 78.3, Lymph % (Auto) 13.1, [place] % (Auto) 6.3, Eos % (Auto) 2.0, Baso % (Auto) 0.3, Neut # (Aut o) 10.3 H, Lymph # (Auto) 1.7, [place] # (Auto) 0.8, Eos # (Auto) 0.3, Baso # (Auto) 0.1, Sodium 137, Potassium 3.7, Chloride 103, Carbon Dioxide 25, Anion Gap 12.7, BUN 10 D, Creatinine 0.50 L D, Estimated Creat Clear 315 H, Estimated GFR 179, Est GFR ( Amer) 217 D, Glucose 118 H, Calcium 8.7, Total Bilirubin 0.9, Direct Bilirubin 0.1, Conjugated Bilirubin 0.0, Indirect Bilirubin 0.8, Unconjugated Bilirubin 0.8, AST 20, ALT 25, Alkaline Phosphatase 67, Total Protein 6.4, Albumin 3.8 I & O for Last 24 hours: Intake & Output 02/14/24 02/15/24 02/16/24 02/17/24 23:59 23:59 23:59 23:59 Intake Total 1200 / 1660 1570 / 1570 Output Total 1225 / 1825 1625 / 1625 Balance -25 / -165 -55 / -55 Weight 266 lb 2 oz 266 lb 1.99 oz 266 lb 1.99 oz Microbiology Reports for the Last 24 Hours: Microbiology 02/16/24 08:35 Blood Blood Culture - Preliminary NO GROWTH AFTER 24 HOURS 02/16/24 08:35 Blood Blood Culture - Preliminary NO GROWTH AFTER 24 HOURS Constitutional Constitutional: no acute distress and cooperative *Routine HEENT Exam Eye: Present PERRL *Routine Respiratory Exam Respiratory: Present CTA bilaterally; Absent accessory muscle use, wheezes or crackles *Routine Cardiovascular Exam Cardiovascular: Present RRR, Normal S1 and Normal S2; Absent murmur, gallop or rubs *Routine Abdominal Exam Abdominal: Present soft; Absent tenderness *Routine Extremities Exam Extremities: Present pulses intact; Absent cyanosis or edema *Routine Skin Exam Skin: Present intact; Absent erythema or wounds *Routine Neurological Exam Neurological: Present alert and oriented X3 Routine Psychiatric Exam Psychiatric: Present cooperative Progress Note: A&P Assessment and plan (1) Acute myocarditis: Status: Acute (2) Elevated troponin: Status: Acute (3) Sepsis: Status: Acute (4) Hyperglycemia: Status: Acute (5) NSTEMI (non-ST elevated myocardial infarction): Status: Acute Assessment and Plan Assessment and Plan for All Diagnoses:: Acute Myocarditis -pt presented with elevated Trop, ProBNP, SOA, D-Dmer and new reduced EF of 40% in setting of normal cors and sepsis -Pt's father and Grandfather had HF. Father had CHF in his 30s or 40s -Holding on GDMT due to sepsis -monitor volume status -check Cardiac MRI Elevated Troponin - secondary to myocarditis/infection - C - normal coronaries Sepsis - Fever, tachycaria, hypotension, leukocytosis - no clear source yet, resp PCR pending, cultures pending, on broad spectrum antibiotics Asthma - lungs clear on exam Obesity, BMI 37 - needs aggressive weight loss via diet and exercise, can readdress outpatient CV plan: check cardiac MRI, slowly initiate GDMT as sepsis clear. Outpatient fu .
[2024-02-17 14:59] LABS: Appearance,Urine CLEAR (Clear); Bilirubin,Urine Negative (Negative); Blood, Urine TRACE-I (Negative); Color,Urine YELLOW (Yellow); Glucose,Urine (UA) Negative (Negative); Ketones,Urine TRACE (Negative); Leukocyte Esterase,Urine Negative (Negative); Microscopic, Urine URINE MICROSCOPIC (MICROSCOPIC); Nitrate,Urine Negative (Negative); Protein,Urine TRACE (Negative); Specific Gravity, Urine 1.025 (1.005-1.030)
[2024-02-17 15:19] LABS: Amorphous Sediment,Urine 1+ /lpf; Bacteria,Urine 3+ /lpf; RBC,Urine Occasional #/hpf (0-3); Squamous Epithelial Cell,Urine Occasional #/hpf (0-5); WBC,Urine Occasional #/hpf (0-3)
[2024-02-17 15:20] LABS: Mucus,Urine 2+ /lpf
--- NOTE | 2024-02-17 15:53 | HMH.ITSTN ---
patient questioning need for CT; IV not getting return and not flushing well-RN Abigail will try to get another IV started and talk to DR about pt having exam or not and will call radiology
--- NOTE | 2024-02-17 16:25 | CT_ITS ---
PROCEDURE INFORMATION: Exam: CT Abdomen And Pelvis Without Contrast Exam date and time: 02/17/2024 4:34 PM Age: 44 years old Clinical indication: Other: N; Additional info: Suspected sepsis TECHNIQUE: Imaging protocol: Computed tomography of the abdomen and pelvis without contrast. Radiation optimization: All CT scans at this facility use at least one of these dose optimization techniques: automated exposure control; mA and/or kV adjustment per patient size (includes targeted exams where dose is matched to clinical indication); or iterative reconstruction. COMPARISON: 1. ABDPELWO CT abdomen pelvis wo con 09/28/2017 12:[address] ANGIO CHEST PE PROTOCOL 02/15/2024 10:33 PM 3. CR XR CHEST PORTABLE 02/15/2024 9:09 PM FINDINGS: Lungs: Scattered areas of bronchial wall thickening which are likely chronic inflammatory. A few areas of subpleural reticulation are noted, nonspecific. Liver: Normal. Gallbladder and biliary ducts: No acute process. Pancreas: Normal. Spleen: The spleen is enlarged. There is a small splenule. Adrenal glands: The adrenal glands appear normal. Kidneys and ureters: Bilateral simple appearing renal cysts. Stomach and bowel: There are scattered colonic diverticula. Appendix: No evidence of appendicitis. Intraperitoneal space: Unremarkable. Vasculature: There is atherosclerotic disease of the visualized aorta and its major branch vessels. Lymph nodes: There are calcified mediastinal lymph nodes likely reflecting prior granulomatous disease. There are mildly prominent but nonenlarged and nonspecific retroperitoneal nodes. Mildly prominent nodes in the central mesentery, nonspecific. Urinary bladder: Unremarkable as visualized. Reproductive: No acute process. Bones/joints: There is diffuse degenerative disease of the visualized osseous structures. Soft tissues: There is a fat containing right inguinal hernia. There is a small fat containing umbilical hernia. IMPRESSION: No acute inflammatory or obstructive process is identified. Incidental findings are described within the findings section. COMMENTS: Consistent with the [employer]'s Incidental Findings Committee white paper (J Am Do Radiol 2018): Any incidental renal lesion less than 1 cm or classified as too small to characterize, or any incidental cystic renal lesion characterized as simple-appearing, is likely benign. No follow-up imaging is recommended for these lesions per consensus recommendations based on imaging criteria.
[2024-02-17 16:52] LABS: Monoscreen (Rapid) Negative (Negative)
[2024-02-17 17:28] LABS: Vancomycin,Trough 6.4 ug/mL (5.0-10.0)
[2024-02-17] MEDS: ALBUTEROL-HFA 90MCG/PUFF INHALER 8GM 2 PUFF IH ×2 (17:36→23:03)
--- NOTE | 2024-02-17 18:00 | P.PN_ITS ---
Subjective *Date: 02/17/24 *Time: 18:00 Interval history: Patient states he feels well today, without chest pains, shortness of breath. No abdominal pain. Exam Data for Last 24 hours Vital signs and Labs for Last 24 Hours: Temp Pulse Resp BP Pulse Ox O2 Del Method 98.6 F 109 H 17 111/46 L 96 Room Air 02/17/24 16:00 02/17/24 16:00 02/17/24 16:00 02/17/24 16:00 02/17/24 16:00 02/17/24 16:59 Laboratory Results - last 24 hr 02/15/24 21:25: Hepatitis C Antibody Non reactive 02/16/24 00:02: Lactate 0.7 02/17/24 07:32: Monoscreen Negative 02/17/24 07:34: WBC 13.2 H, RBC 4.19 L, Hgb 12.8 L, Hct 38.9 L, MCV 92.9, MCH 30.5, MCHC 32.8, RDW 13.8, Plt Count 172, MPV 7.5, Neut % (Auto) 78.3, Lymph % (Auto) 13.1, [place] % (Auto) 6.3, Eos % (Auto) 2.0, Baso % (Auto) 0.3, Neut # (Auto) 10.3 H, Lymph # (Auto) 1.7, [place] # (Auto) 0.8, Eos # (Auto) 0.3, Baso # (Auto) 0.1, Sodium 137, Potassium 3.7, Chloride 103, Carbon Dioxide 25, Anion Gap 12.7, BUN 10 D, Creatinine 0.50 L D, Estimated Creat Clear 315 H, Estimated GFR 179, Est GFR ( Amer) 217 D, Glucose 118 H, Calcium 8.7, Total Bilirubin 0.9, Direct Bilirubin 0.1, Conjugated Bilirubin 0.0, Indirect Bilirubin 0.8, Unconjugated Bilirubin 0.8, AST 20, ALT 25, Alkaline Phosphatase 67, Total Protein 6.4, Albumin 3.8 02/17/24 14:45: Urine Color Yellow, Urine Appearance Clear, Urine pH 6.0, Ur Specific [place] 1.025, Urine Protein Trace, Urine Glucose (UA) Negative, Urine Ketones Trace, Urine Blood Trace-i, Urine Nitrate Negative, Urine Bilirubin Negative, Urine Urobilinogen 1.0, Ur Leukocyte Esterase Negative, Urine RBC Occasional, Urine WBC Occasional, Ur Squamous Epith Cells Occasional, Amorphous Sediment 1+, Urine Bacteria 3+, Urine Mucus 2+ 02/17/24 17:00: Vancomycin Trough 6.4 I & O for Last 24 hours: Intake & Output 02/14/24 02/15/24 02/16/24 02/17/24 23:59 23:59 23:59 23:59 Intake Total 1200 / 1660 2300 / 2300 Output Total 1225 / 1825 1875 / 1875 Balance -25 / -165 425 / 425 Weight 120.712 kg 120.712 kg 120.7 kg Microbiology Reports for the Last 24 Hours: Microbiology 02/16/24 08:35 Blood Blood Culture - Preliminary NO GROWTH AFTER 24 HOURS 02/16/24 08:35 Blood Blood Culture - Preliminary NO GROWTH AFTER 24 HOURS Constitutional Constitutional: no acute distress and obese *Routine HEENT Exam Head: Present normocephalic Eye: Present EOMI and PERRL ENT: Present mucous membranes moist *Routine Neck Exam Neck: Present supple; Absent lymphadenopathy *Routine Respiratory Exam Respiratory: Present CTA bilaterally *Routine Cardiovascular Exam Cardiovascular: Present tachycardia *Routine Abdominal Exam Abdominal: Present soft and normoactive bowel sounds; Absent tenderness *Routine Extremities Exam Extremities: Absent cyanosis, clubbing or edema *Routine Skin Exam Skin: Present warm; Absent rash *Routine Neurological Exam Neurological: Present alert and oriented X3 Assessment and Plan *Assessment and plan (1) Chest pain: Status: Acute Category: Medical Code(s): R07.9 - Chest pain, unspecified (2) Elevated troponin: Status: Acute Category: Medical Code(s): R79.89 - Other specified abnormal findings of blood chemistry (3) Hyperglycemia: Status: Acute Category: Medical Code(s): R73.9 - Hyperglycemia, unspecified Plan Patient is a 43-year-old male with past medical history of asthma who presents to the hospital for chest pain dizziness. According to the patient he has been having shortness of breath along with chest pain, his chest pain is substernal, intermittent, worsens with mobility, denies associated nausea vomiting. Patient was noticed to have elevated troponin and was admitted for further evaluation. He denied fever chills diarrhea constipation dysuria. He also complains of generalized weakness fatigue and headaches. Assessment and plan #NSTEMI #Elevated troponins #HFmrEF ? Patient presented with generalized weakness, dizziness, and chest pain. ? Initial troponin 0.18, did trend down to 0.15. EKG did not show acute ischemic findings. ? Cardiology consulted, [facility] revealed normal coronary arteries but did show reduced ejection fraction with regional wall motion abnormalities with elevated LVEDP. Recommended cardiac MRI for further evaluation, which they state will be done outpatient. ? D-dimer 0.71, CTA unremarkable for PE. ? BNP 2620 but no signs of fluid overload. ? ECHO revealed LVEF 40 to 45%, mild global hypokinesis. EKG unremarkable for acute findings, including pericarditis. ? These constellation of findings is most suggestive of myocarditis, especially given patient's age. See below. Discontinue aspirin, statin. ? Cardiac telemetry. ? Patient feels well today, and if patient's leukocytosis and tachycardia improved tomorrow can likely be discharged with close follow-up with cardiology. #Suspected myocarditis #Leukocytosis #Tachycardia ? Presented with WBC 15.6, improved to 13.1. Improved initially without antibiotics ? Patient is having fevers up to 101.7. Tachycardia up to 120. ? CTA chest, CT abdomen/pelvis, UA unremarkable for infectious signs. UDS negative. ? Given negative bacterial infectious workup, and newfound heart failure, troponinemia without CAD, myocarditis is most likely the differential. ? IV vancomycin, Zosyn discontinued today. ? Follow-up respiratory PCR. [place] negative. Asthma Ipratropium as needed. Hyperglycemia Check A1c DVT prophylaxis-heparin
[2024-02-17] MEDS: ATORVASTATIN 40MG TABLET 40 MG PO (20:03)
[2024-02-17 21:40] LABS: Vancomycin,Peak 10.1 ug/ml (11-39)
[2024-02-18] VITALS: BP 106/72; PULSE 100; PULSE 106; RESP 20; TEMP 37.3; O2SAT 97
[2024-02-18 04:00] VITALS: BP 124/78; PULSE 110; PULSE 116; RESP 20; TEMP 37.8; O2SAT 98; BMI 38.1
[2024-02-18] MEDS: ACETAMINOPHEN 500MG TAB 500 MG PO (04:09)
--- NOTE | 2024-02-18 05:18 | PC.NURSE ---
Pt is a&ox4 and has tolerated room air. Lung sounds diminished and bowel sounds active. Pt has denied any chest pain or SOA. He has remained sinus tachycardia throughout the shift. He did have a fever of 100.1 and Tylenol 500 mg was given. Temperature did come down to 99.2. No requests at this time, call light within reach.
[2024-02-18 06:30] VITALS: TEMP 36.9
[2024-02-18 07:08] LABS: Basophils # 0.1 K/mm3 (0-0.2); Basophils % 0.6 % (0.1-2.0); Eosinophils # 0.2 K/mm3 (0.0-0.4); Eosinophils % 1.8 % (0.1-12.0); Hematocrit 41.5 % (42.0-52.0); Hemoglobin 13.8 g/dL (14.1-18.0); Lymphocytes # 1.6 K/mm3 (0.7-4.5); Lymphocytes % 12.3 % (10-50); Mean Corpuscular HGB Conc 33.2 g/dL (31.8-35.4); Mean Corpuscular Hemoglobin 30.1 pg (27.0-31.2); Mean Corpuscular Volume 90.5 fl (80-94); Mean Platelet Volume 8.9 fl (7.4-10.4); Monocytes # 0.9 K/mm3 (0.1-1.0); Monocytes % 6.8 % (1.7-9.3); Neutrophils # 9.9 K/mm3 (1.8-7.8); Neutrophils % 78.5 % (37.0-80.0); Platelet Count 227 K/mm3 (142-424); Red Blood Count 4.59 M/mm3 (4.60-6.20); Red Cell Distribution Width 13.8 % (11.5-17.5); White Blood Count 12.6 K/mm3 (4.8-10.8)
[2024-02-18 07:09] LABS: Chloride 99 mmol/L (98-107); Potassium 3.6 mmoL/L (3.5-5.1); Sodium 136 mmol/L (136-145)
[2024-02-18 07:12] LABS: Anion Gap 13.6 mEq/L (5-15); Blood Urea Nitrogen 9 mg/dl (9-20); Carbon Dioxide 27 mmol/L (22.0-30.0); Creatinine Clearance Estimated 269 mL/min (50-200); Estimated Glomerular Filt Rate 145 ml/min (>60); GFR (African American) 176 ML/MIN (>60)
[2024-02-18 07:13] LABS: Calcium 9.2 mg/dl (8.4-10.2); Glucose 122 mg/dl (74-100)
[2024-02-18 07:52] VITALS: BP 113/62; PULSE 98; RESP 16; TEMP 36.8; O2SAT 96
[2024-02-18] MEDS: ALBUTEROL-HFA 90MCG/PUFF INHALER 8GM 2 PUFF IH (07:54)
[2024-02-18 08:00] VITALS: PULSE 100
[2024-02-18] MEDS: ASPIRIN EC 81MG TABLET 81 MG PO (09:06)
[2024-02-18] MEDS: METOPROLOL SUCCINATE XL 25MG TABLET 12.5 MG PO (09:07)
[2024-02-18] MEDS: HEPARIN SODIUM 5,000 UNIT/ML VIAL 5000 UNIT SQ (09:07)
[2024-02-18] MEDS: LISINOPRIL 2.5MG TABLET 2.5 MG PO (09:07)
[2024-02-18 10:16] LABS: Procalcitonin 0.247 ng/mL (0.0-2.0)
--- NOTE | 2024-02-18 11:07 | P.DS_ITS ---
General Admission date:: 02/16/24 HPI HPI HPI: Patient is a 43-year-old male with past medical history of asthma who presents to the hospital for chest pain dizziness. According to the patient he has been having shortness of breath along with chest pain, his chest pain is substernal, intermittent, worsens with mobility, denies associated nausea vomiting. Patient was noticed to have elevated troponin and was admitted for further evaluation. He denied fever chills diarrhea constipation dysuria. He also complains of generalized weakness fatigue and headaches. Hospital Course Hospital Course Hospital Course: Patient is a 43-year-old male with past medical history of asthma who presents to the hospital for chest pain dizziness. According to the patient he has been having shortness of breath along with chest pain, his chest pain is substernal, intermittent, worsens with mobility, denies associated nausea vomiting. Patient was noticed to have elevated troponin and was admitted for further evaluation. He denied fever chills diarrhea constipation dysuria. He also complains of generalized weakness fatigue and headaches. Assessment and plan #NSTEMI #Elevated troponins #HFmrEF ? Patient presented with generalized weakness, dizziness, and chest pain. ? Initial troponin 0.18, did trend down to 0.15. EKG did not show acute ischemic findings. ? Cardiology consulted, performed LHC which revealed normal coronary arteries but did show reduced ejection fraction with regional wall motion abnormalities with elevated LVEDP. Recommended cardiac MRI for further evaluation, which they state will be done outpatient. ? D-dimer 0.71, CTA unremarkable for PE. ? BNP 2620 but no signs of fluid overload. ? ECHO revealed LVEF 40 to 45%, mild global hypokinesis. EKG unremarkable for acute findings, including pericarditis. ? These constellation of findings is most suggestive of myocarditis, especially given patient's age. See below. Discontinued aspirin, statin especially with normal LHC. - Patient continues to be chest pain free, comfortable. Medically stable for discharge with close follow-up with cardiology. - Discharged with metoprolol succinate 25mg, lisinopril 5mg as BP 130/72. #Myocarditis #Leukocytosis #Tachycardia ? Presented with WBC 15.6, improved to 13.1. Improved initially without antibiotics, but started empiric vacomycin, zosyn but later discontinued after bacterial workup including procalcitonin, CTA chest, CT abdomen/pelvis, UA, BC unremarkable. ? Fevers peaked to to 101.7. Tachycardia up to 120. Both improved, though still mildly tachycardic to 106 but clinically stable. ? UDS negative. ? Given negative bacterial infectious workup, and newfound heart failure, troponinemia without CAD, myocarditis is most likely the differential. ? Respiratory panel, [place] negative. - Discharged with metoprolol succinate 25mg, lisinopril 5mg as BP 130/72. - Will closely follow-up with cardiology within 1 week. - Work note provided with activity restrictions for 1 week. 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 Asthma Ipratropium as needed. - Discharged with Advair as patient is not able to afford it outpatient. - Will follow-up with PCP for further management. Exam Data for Last 24 hours Vital signs and Labs for Last 24 Hours: Temp Pulse Resp BP Pulse Ox O2 Del Method 98.2 F 98 H 16 113/62 96 Room Air 02/18/24 07:52 02/18/24 07:52 02/18/24 07:52 02/18/24 07:52 02/18/24 07:52 02/18/24 07:52 Laboratory Results - last 24 hr 02/17/24 07:32: Monoscreen Negative 02/17/24 09:04: Chlamy pneumoniae PCR Not detected, Adenovirus (PCR) Not detected, B. pertussis DNA (PCR) Not detected, Coronavirus OC43 (PCR) Not detected, Coronavirus HKU1 (PCR) Not detected, Coronavirus 229E (PCR) Not detected, SARS-CoV-2 (PCR) Not detected, Coronavirus NL63 (PCR) Not detected, Human Metapneumovir PCR Not detected, Influenza A (H1) PCR Not detected, Influ A (H1N1/09) PCR Not detected, Influenza A (H3) PCR Not detected, Influenza Type A (PCR) Not detected, Influenza Type B (PCR) Not detected, M. pneumoniae (PCR) Not detected, Parainfluenza 1 (PCR) Not detected, Parainfluenza 2 (PCR) Not detected, Parainfluenza 3 (PCR) Not detected, Parainfluenza 4 (PCR) Not detected, RSV (PCR) Not detected, Entero/Rhino (PCR) Not detected 02/17/24 14:45: Urine Color Yellow, Urine Appearance Clear, Urine pH 6.0, Ur Specific [place] 1.025, Urine Protein Trace, Urine Glucose (UA) Negative, Urine Ketones Trace, Urine Blood Trace-i, Urine Nitrate Negative, Urine Bilirubin Negative, Urine Urobilinogen 1.0, Ur Leukocyte Esterase Negative, Urine RBC Occasional, Urine WBC Occasional, Ur Squamous Epith Cells Occasional, Amorphous Sediment 1+, Urine Bacteria 3+, Urine Mucus 2+ 02/17/24 17:00: Vancomycin Trough 6.4 02/17/24 20:52: Vancomycin Peak 10.1 L 02/18/24 06:31: Procalcitonin 0.247 02/18/24 06:32: WBC 12.6 H, RBC 4.59 L, Hgb 13.8 L, Hct 41.5 L, MCV 90.5, MCH 30.1, MCHC 33.2, RDW 13.8, Plt Count 227 D, MPV 8.9, Neut % (Auto) 78.5, Lymph % (Auto) 12.3, [place] % (Auto) 6.8, Eos % (Auto) 1.8, Baso % (Auto) 0.6, Neut # (Auto) 9.9 H, Lymph # (Auto) 1.6, [place] # (Auto) 0.9, Eos # (Auto) 0.2, Baso # (Auto) 0.1, Sodium 136, Potassium 3.6, Chloride 99, Carbon Dioxide 27, Anion Gap 13.6, BUN 9, Creatinine 0.60 L, Estimated Creat Clear 269, Estimated GFR 145, Est GFR ( Amer) 176, Glucose 122 H, Calcium 9.2 I & O for Last 24 hours: Intake & Output 02/15/24 02/16/24 02/17/24 02/18/24 23:59 23:59 23:59 23:59 Intake Total 1200 / 1660 2300 / 2600 500 / 500 Output Total 1225 / 1825 2475 / 2475 325 / 325 Balance -25 / -165 -175 / 125 175 / 175 Weight 120.712 kg 120.712 kg 120.7 kg 123.491 kg Microbiology Reports for the Last 24 Hours: Microbiology 02/16/24 08:35 Blood Blood Culture - Preliminary NO GROWTH AFTER 48 HOURS 02/16/24 08:35 Blood Blood Culture - Preliminary NO GROWTH AFTER 48 HOURS 02/16/24 23:33 Blood Blood Culture - Preliminary NO GROWTH AFTER 24 HOURS 02/16/24 23:33 Blood Blood Culture - Preliminary NO GROWTH AFTER 24 HOURS Constitutional Constitutional: no acute distress and obese *Routine HEENT Exam Head: Present normocephalic Eye: Present EOMI and PERRL ENT: Present mucous membranes moist *Routine Neck Exam Neck: Present supple; Absent lymphadenopathy *Routine Respiratory Exam Respiratory: Present CTA bilaterally *Routine Cardiovascular Exam Cardiovascular: Present tachycardia *Routine Abdominal Exam Abdominal: Present soft and normoactive bowel sounds; Absent tenderness *Routine Extremities Exam Extremities: Absent cyanosis, clubbing or edema *Routine Skin Exam Skin: Present warm; Absent rash *Routine Neurological Exam Neurological: Present alert and oriented X3 Results Data Completed and Pending Labs on day of discharge: Labs from last 24 hours 02/18/24 02/18/24 02/17/24 06:32 06:31 20:52 WBC 12.6 H RBC 4.59 L Hgb 13.8 L Hct 41.5 L MCV 90.5 MCH 30.1 MCHC 33.2 RDW 13.8 Plt Count 227 D MPV 8.9 Neut % (Auto) 78.5 Lymph % (Auto) 12.3 [place] % (Auto) 6.8 Eos % (Auto) 1.8 Baso % (Auto) 0.6 Neut # (Auto) 9.9 H Lymph # (Auto) 1.6 [place] # (Auto) 0.9 Eos # (Auto) 0.2 Baso # (Auto) 0.1 Sodium 136 Potassium 3.6 Chloride 99 Carbon Dioxide 27 Anion Gap 13.6 BUN 9 Creatinine 0.60 L Estimated Creat Clear 269 Estimated GFR 145 Est GFR ( Amer) 176 Glucose 122 H Calcium 9.2 Procalcitonin 0.247 Urine Color Urine Appearance Urine pH Ur Specific [place] Urine Protein Urine Glucose (UA) Urine Ketones Urine Blood Urine Nitrate Urine Bilirubin Urine Urobilinogen Ur Leukocyte Esterase Urine RBC Urine WBC Ur Squamous Epith Cells Amorphous Sediment Urine Bacteria Urine Mucus Vancomycin Peak 10.1 L Vancomycin Trough Chlamy pneumoniae PCR Adenovirus (PCR) B. pertussis DNA (PCR) Coronavirus OC43 (PCR) Coronavirus HKU1 (PCR) Coronavirus 229E (PCR) SARS-CoV-2 (PCR) Coronavirus NL63 (PCR) Monoscreen Human Metapneumovir PCR Influenza A (H1) PCR Influ A (H1N1/09) PCR Influenza A (H3) PCR Influenza Type A (PCR) Influenza Type B (PCR) M. pneumoniae (PCR) Parainfluenza 1 (PCR) Parainfluenza 2 (PCR) Parainfluenza 3 (PCR) Parainfluenza 4 (PCR) RSV (PCR) Entero/Rhino (PCR) 02/17/24 02/17/24 02/17/24 17:00 14:45 09:04 WBC RBC Hgb Hct MCV MCH MCHC RDW Plt Count MPV Neut % (Auto) Lymph % (Auto) [place] % (Auto) Eos % (Auto) Baso % (Auto) Neut # (Auto) Lymph # (Auto) [place] # (Auto) Eos # (Auto) Baso # (Auto) Sodium Potassium Chloride Carbon Dioxide Anion Gap BUN Creatinine Estimated Creat Clear Estimated GFR Est GFR ( Amer) Glucose Calcium Procalcitonin Urine Color Yellow Urine Appearance Clear Urine pH 6.0 Ur Specific [place] 1.025 Urine Protein Trace Urine Glucose (UA) Negative Urine Ketones Trace Urine Blood Trace-i Urine Nitrate Negative Urine Bilirubin Negative Urine Urobilinogen 1.0 Ur Leukocyte Esterase Negative Urine RBC Occasional Urine WBC Occasional Ur Squamous Epith Cells Occasional Amorphous Sediment 1+ Urine Bacteria 3+ Urine Mucus 2+ Vancomycin Peak Vancomycin Trough 6.4 Chlamy pneumoniae PCR Not detected Adenovirus (PCR) Not detected B. pertussis DNA (PCR) Not detected Coronavirus OC43 (PCR) Not detected Coronavirus HKU1 (PCR) Not detected Coronavirus 229E (PCR) Not detected SARS-CoV-2 (PCR) Not detected Coronavirus NL63 (PCR) Not detected Monoscreen Human Metapneumovir PCR Not detected Influenza A (H1) PCR Not detected Influ A (H1N1/09) PCR Not detected Influenza A (H3) PCR Not detected Influenza Type A (PCR) Not detected Influenza Type B (PCR) Not detected M. pneumoniae (PCR) Not detected Parainfluenza 1 (PCR) Not detected Parainfluenza 2 (PCR) Not detected Parainfluenza 3 (PCR) Not detected Parainfluenza 4 (PCR) Not detected RSV (PCR) Not detected Entero/Rhino (PCR) Not detected 02/17/24 07:32 WBC RBC Hgb Hct MCV MCH MCHC RDW Plt Count MPV Neut % (Auto) Lymph % (Auto) [place] % (Auto) Eos % (Auto) Baso % (Auto) Neut # (Auto) Lymph # (Auto) [place] # (Auto) Eos # (Auto) Baso # (Auto) Sodium Potassium Chloride Carbon Dioxide Anion Gap BUN Creatinine Estimated Creat Clear Estimated GFR Est GFR ( Amer) Glucose Calcium Procalcitonin Urine Color Urine Appearance Urine pH Ur Specific [place] Urine Protein Urine Glucose (UA) Urine Ketones Urine Blood Urine Nitrate Urine Bilirubin Urine Urobilinogen Ur Leukocyte Esterase Urine RBC Urine WBC Ur Squamous Epith Cells Amorphous Sediment Urine Bacteria Urine Mucus Vancomycin Peak Vancomycin Trough Chlamy pneumoniae PCR Adenovirus (PCR) B. pertussis DNA (PCR) Coronavirus OC43 (PCR) Coronavirus HKU1 (PCR) Coronavirus 229E (PCR) SARS-CoV-2 (PCR) Coronavirus NL63 (PCR) Monoscreen Negative Human Metapneumovir PCR Influenza A (H1) PCR Influ A (H1N1/09) PCR Influenza A (H3) PCR Influenza Type A (PCR) Influenza Type B (PCR) M. pneumoniae (PCR) Parainfluenza 1 (PCR) Parainfluenza 2 (PCR) Parainfluenza 3 (PCR) Parainfluenza 4 (PCR) RSV (PCR) Entero/Rhino (PCR) Preliminary micro results at discharge 02/16/24 08:35 Blood Culture - Preliminary Blood NO GROWTH AFTER 48 HOURS 02/16/24 08:35 Blood Culture - Preliminary Blood NO GROWTH AFTER 48 HOURS 02/16/24 23:33 Blood Culture - Preliminary Blood NO GROWTH AFTER 24 HOURS 02/16/24 23:33 Blood Culture - Preliminary Blood NO GROWTH AFTER 24 HOURS DS: Diagnosis Discharge Diagnosis (1) Chest pain: Status: Resolved Code(s): R07.9 - Chest pain, unspecified (2) Elevated troponin: Status: Acute Code(s): R79.89 - Other specified abnormal findings of blood chemistry Meds Home Medications and Allergies Home Medications ?Medication ?Instructions ?Recorded ?Confirmed ?Type acetaminophen 500 mg tablet 1,000 mg (2 x 500 mg) PO Q6H PRN 02/18/24 Rx Fever Or Mild Pain (1-3) #30 tabs budesonide-formoterol HFA 80 1 puff inhalation BID #10.2 grams 02/18/24 Rx mcg-4.5 mcg/actuation aerosol inhaler (Breyna) lisinopril 2.5 mg tablet 2.5 mg PO DAILY 30 days #30 tabs 02/18/24 Rx metoprolol succinate 25 mg 12.5 mg (1/2 x 25 mg) PO DAILY 30 02/18/24 Rx tablet,extended release 24 hr days #15 tabs New Prescriptions to Start Prescriptions: acetaminophen Serafin Diamond budesonide-formoterol [Breyna] Serafin Diamond lisinopril Serafin Diamond metoprolol succinate Serafin Diamond Allergies Allergy/AdvReac Type Severity Reaction Status Date / Time No Known Allergies Allergy Verified 02/27/21 15:58 Discharge Plan Disposition Patient Disposition: Home, Self-Care Discharge Order Discharge Orders: Discharge Order (Routine); Ordered 02/18/24 Ordered By: Serafin Diamond Follow up Plan Follow up with: Travis Boggs MD [Staff Physician] - 03/06/24 9:15 am () Prescriptions/Medication Reconciliation: New budesonide-formoterol [Breyna] 80-4.5 mcg/actuation HFA aerosol inhaler 1 puff inhalation BID Qty: 10.2 3RF acetaminophen 500 mg Tablet 1,000 mg PO Q6H PRN (Reason: Fever Or Mild Pain (1-3)) Qty: 30 0RF metoprolol succinate 25 mg Tablet Extended Release 24 Hr 12.5 mg PO DAILY 30 Days Qty: 15 0RF lisinopril 2.5 mg Tablet 2.5 mg PO DAILY 30 Days Qty: 30 0RF Discontinued albuterol sulfate 90 mcg/actuation HFA aerosol inhaler 2 puff INHALATION Q6H PRN (Reason: SOB/wheezing) 7 Days Qty: 6.7 0RF Rx Instructions: administer with spacer fluticasone propion-salmeterol [Advair Diskus] 250-50 mcg/dose Blister With De vice 1 inh INHALATION BID Problem Reconciliation Problems Reviewed?: Yes Patient Discharge Instructions ACTIVITY: Continue current activity DIET: continue same diet Additional Instructions: Call cardiology office and change her appointment to follow-up in the next week. Take metoprolol and lisinopril to help protect your heart for your myocarditis. I have prescribed you Breyna which is an alternative to Advair. I have also instructed the pharmacy to find an alternative if this is not covered under your insurance. Try to minimize use of albuterol if you are able to get this prescription. Take Tylenol as needed for fevers. Avoid ibuprofen or other NSAIDs for this time. Patient Instructions: DI for Heart Attack, Myocarditis -- Adult, DI for Cardiac Catheterization, DI for Surgical Site Infection, DI for Chest Pain Print Language: [place] Island[place] Providers Primary Care Provider: Provider,Referral Admit Provider: Serafin Diamond Attending Provider: Serafin Diamond
[2024-02-18 11:24] VITALS: BP 130/72; PULSE 106; RESP 18; TEMP 36.9; O2SAT 95
[2024-02-18] MEDS: FLUTICASONE/SALMETEROL 250/50MCG DISKUS 1 PUFF IH (12:46)
--- NOTE | 2024-02-21 14:46 | CARE MANAGER ---
Spoke with patient regarding recent discharge. He stated he has made the changes in medication prescribed at discharge and was aware of cardiology appt. I encouraged him to call his PCP for a follow up appt as well. No concerns/complaints voiced at time of call.
--- NOTE | 2024-02-21 21:03 | PC.NURSE ---
Pt called stating he was told he would have work restrictions upon discharge. Spoke with Dr. Diamond and he gave verbal order for the next week to nopt have any heavy lifting greater than 15lbs and no standing consecutively for more than 3 hours.
== END 2024-02-18 13:09 | disposition home or self-care (01) | DRG 281 ==
LOC: ER 22:56 → 2ND 02-16 00:27
PROVIDERS: Internal Medicine; Admitting Provider Student in an Organized Health Care Education/Training Program; Emergency Provider Emergency Medicine; Visit Provider Student in an Organized Health Care Education/Training Program
PROC: 4A023N7 Measurement of Cardiac Sampling and Pressure, Left Heart, Percutaneous Approach (ICD-10-PCS; principal; 2024-02-16 12:15)
DX: I21.4 Non-ST elevation (NSTEMI) myocardial infarction; I50.20 Unspecified systolic (congestive) heart failure; I51.4 Myocarditis, unspecified; J45.909 Unspecified asthma, uncomplicated; R73.9 Hyperglycemia, unspecified
CPT/HCPCS: 36415; 71045; 71275; 74176; 80048; 80050; 80053; 80061; 80076; 80202; 80307; 81001; 82803; 83036; 83605; 83735; 83880; 84145; 84436; 84443; 84484; 85007; 85025; 85378; 85610; 85730; 86318; 86803; 87040; 87086; 87265; 87389; 87486; 87581; 87632; 87635; 93005; 93306; 99291; C1725; C1769; J1200; J1644; J3370; J7030; Q9967

== ENCOUNTER 2024-03-15 15:01 | Outpatient (CLI) | payer OTHER, SELFPAY ==
--- NOTE | 2024-03-15 15:10 | CA_ITS ---
APPROVED REPORT EXAM: Limited 2D Echocardiogram [employer] Counselor: Jayne Gallegos CRT Ht: 5 ft 11 in Wt: 264lbs BSA: 2.37 BP: 126/79 mmHg Indications: EF CHECK, ACUTE MYOCARDITIS M-Mode Dimensions RVDd 3.49 cm (0.9-2.6) LA Diam 3.70 cm (1.9-4.0) LVDd 5.90 cm (3.5-5.7) LVDs 4.14 cm (3.5-5.7) IVSd 1.35 cm (0.6-1.1) PWd 0.77 cm (0.6-1.1) EF (Teich) 56.20% FS 29.80% EDV (Teich) 173.20 mL ESV (Teich) 75.90 mL Other Information Study Quality: Adequate Conclusion This is a limited TTE to evaluate for LVEF in the setting of recent myocarditis. Limited windows were obtained. The left ventricle is normal in size. There is increased LV wall thickness. There is normal global LV systolic function. No regional wall motion abnormalities are noted. LVEF is 55%. Compared to prior study from 02/16/2024, the LVEF is now improved. Electronically signed by : Gia Salazar MD 03/18/2024 02:21:00
== END 2024-03-15 23:59 | disposition home or self-care (01) ==
LOC: RT 15:05
PROVIDERS: PCP Pediatrics; Visit Provider Physician Assistant
DX: I40.8 Other acute myocarditis (principal); I42.8 Other cardiomyopathies
CPT/HCPCS: 93308

== ENCOUNTER 2024-06-23 15:59 | Emergency (ER) | payer OTHER, SELFPAY ==
[2024-06-23 16:26] VITALS: BP 161/98; PULSE 120; RESP 18; TEMP 37.2; O2SAT 97; BMI 38.6
--- NOTE | 2024-06-23 16:31 | EXP.UTC ---
Discharge Plan Disposition Patient Disposition: Home, Self-Care Condition: Good Prescriptions Prescriptions: New amoxicillin 500 mg tablet 500 mg PO BID 10 Days Qty: 20 0RF fluticasone propionate 50 mcg/actuation spray,suspension 1 spray intranasal DAILY Qty: 16 0RF No Action (DME) blood pressure monitor [Blood Pressure Kit] Kit See Rx Instructions .Route Qty: 1 0RF Rx Instructions: As directed famotidine 20 mg tablet PO PRN Patient Comments: TAKE 1 TABLET BY MOUTH TWICE DAILY budesonide-formoterol [Breyna] 80-4.5 mcg/actuation HFA aerosol inhaler 1 puff inhalation BID Qty: 10.2 3RF carvedilol [Coreg] 3.125 mg tablet 3.125 mg PO BID Qty: 60 5RF Rx Instructions: must administer with a meal/food lisinopril 2.5 mg tablet 2.5 mg PO DAILY Qty: 30 5RF acetaminophen 500 mg Tablet 1,000 mg PO Q6H PRN (Reason: Fever Or Mild Pain (1-3)) Qty: 30 0RF budesonide-formoterol [Breyna] 80-4.5 mcg/actuation HFA aerosol inhaler 1 inh INHALATION DAILY Patient Comments: INHALE 1 PUFF TWICE DAILY Referrals Follow up/Referrals: Talha Adair [Primary Care Provider] - See instructions Activity Restrictions/Add. Instructions Additional Instructions/Restrictions: Start antibiotic patient to take as ordered for a full length of time even if you feel better. Sinus infections do not get better overnight. It may take 2-3 days to notice much improvement so be sure to use conservative measures as discussed for symptoms. Flonase 1 spray each nostril daily to help with nasal congestion, sinus and ear pressure/information Increase fluids Humidifier/vaporizer as needed Tylenol and ibuprofen as needed for fever or pain. If symptoms do not improve or get worse return or be seen in the ER Follow-up with primary care this week Clinical Impressions Clinical Impression: Acute maxillary sinusitis Qualifiers: Recurrence: non-recurrent Qualified Code(s): J01.00 - Acute maxillary sinusitis, unspecified Instructions Patient Instructions: DI for Sinusitis Print Language Print Language: [place] Discharge ED Provider: Lopez ([facility] [place] General Stated complaint: nasal siva, cough Mode of Arrival: Ambulatory Source of Information: Patient Time Seen by Provider: 06/23/24 16:31 Description of Symptoms (Recalled from Triage Doc. by RN): SINUS PRESSURE, BURNING IN NOSE, YELLOW DRAINAGE HEENT Symptoms (Recalled from RN notes): Yes Resp Symptoms (Recalled from RN notes): No Skin Symptoms (Recalled from RN notes): No MS Symptoms (Recalled from RN notes): No Functional Status (Recalled from RN notes): WNL History of Present Illness Provider Complaint: 44-year-old male presents for complaints of nasal congestion, sinus pressure, burning in the nose, yellow thick drainage and pressure behind eyes. Related Data Home Medications ?Medication ?Instructions ?Recorded ?Confirmed famotidine 20 mg tablet mg PO PRN 03/06/24 03/20/24 budesonide-formoterol HFA 80 1 inh inhalation DAILY 06/23/24 06/23/24 mcg-4.5 mcg/actuation aerosol inhaler (Breyna) Previous Rx's ?Medication ?Instructions ?Recorded acetaminophen 500 mg tablet 1,000 mg (2 x 500 mg) PO Q6H PRN 02/18/24 Fever Or Mild Pain (1-3) #30 tabs blood pressure monitor (Blood #1 ea 03/20/24 Pressure Kit) budesonide-formoterol HFA 80 1 puff inhalation BID #10.2 grams 04/25/24 mcg-4.5 mcg/actuation aerosol inhaler (Breyna) carvedilol 3.125 mg tablet (Coreg) 3.125 mg PO BID #60 tabs 04/25/24 lisinopril 2.5 mg tablet 2.5 mg PO DAILY #30 tabs 04/25/24 amoxicillin 500 mg tablet 500 mg PO BID 10 days #20 tabs 06/23/24 fluticasone propionate 50 1 spray intranasal DAILY #16 grams 06/23/24 mcg/actuation nasal spray,suspension Allergies Allergy/AdvReac Type Severity Reaction Status Date / Time No Known Allergies Allergy Verified 03/20/24 15:00 Worker's Comp Is this a Worker's Comp case?: [facility] Disclaimer: The information contained in this section may have been updated after the patient was seen, as this information can be updated by other users. 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 , [employer]) Hyperglycemia Sinusitis Back pain with sciatica Patient left before triage assessment Upper respiratory infection Tinea pedis Exposure to COVID-19 virus Lumbar radiculopathy Psoriasis History of back pain Asthma Family History , [employer]) Family history of acute heart failure Thyroid cancer Cancer of kidney Social History , [employer]) Smoking Status: Never smoker alcohol intake: never current occupational status: employed Travel in the last 8 weeks: None housing: house Have you lived/traveled outside [place] in past 30 days?: No Contact w/someone who lives/traveled outside US past 30 days?: No Exposure to someone with infectious disease in past 14 days?: No Do you have a fever (greater than 100.4 F or 38 C)?: No Have you tested positive for COVID-19: No Exposed to someone with COVID-19 in past 14 days?: No Do you have a sore throat?: No Do you have a cough?: Yes Do you have any weakness?: No Do you have any diarrhea?: No Are you experiencing any unusual bleeding?: No Do you have any muscle aches/pain?: No Do you have any abdominal pain?: No Are you experiencing loss of taste or smell?: No ROS Obtained: Yes Systems reviewed as appropriate & no additional complaints except as documented Physical Exam General General appearance: alert and in no apparent distress ENT ENT exam: Present mucous membranes moist and TM's normal bilaterally Expanded ENT Exam Nose exam: Present sinus tenderness Respiratory Respiratory exam: Present normal lung sounds bilaterally Cardiovascular Cardiovascular exam: Present regular rate and normal rhythm Neurological Exam Neurological exam: Present alert and oriented X3 Skin Skin exam: Present warm and intact Medical Decision Making Medical Records Medical records reviewed: Yes I reviewed the patient's medical records. Screening: Per USPSTF and CDC recommendations, given the prevalence of disease in our region, it is our hospital?s policy to screen for HIV and viral Hepatitis for all patients aged 18 and over and those with ongoing risk factors. Dariel Inquiry Pt receiving controlled substance: No Vital Signs: 06/23/24 16:26 Temperature 98.9 F Temperature Source Oral Pulse Rate [Left Radial] 120 H Respiratory Rate 18 Blood Pressure [Left Arm] 161/98 H Blood Pressure Mean [Left Arm] 119 02 Sat by Pulse Oximetry 97 Lab Data Lab results reviewed: Yes I reviewed the patient's lab results.
[2024-06-23 16:55] VITALS: BP 161/98; PULSE 120; RESP 18; TEMP 37.2
== END 2024-06-23 16:58 | disposition home or self-care (01) ==
PROVIDERS: Emergency Provider Nurse Practitioner Family; PCP Pediatrics
DX: J01.00 Acute maxillary sinusitis, unspecified (principal)
CPT/HCPCS: 99213; G0381

== ENCOUNTER 2024-09-05 21:45 | Emergency (ER) | payer OTHER, SELFPAY ==
[2024-09-05 21:58] VITALS: BP 149/92; PULSE 98; RESP 14; TEMP 36.8; O2SAT 98; BMI 38.6
--- NOTE | 2024-09-05 22:29 | ED_ITS ---
Discharge Plan Disposition Patient Disposition: Home, Self-Care Prescriptions Prescriptions: New methocarbamol 750 mg tablet 1,500 mg PO TID Qty: 90 0RF lidocaine 5 % adhesive patch,medicated 1 patch topical DAILY Qty: 15 0RF Rx Instructions: leave on most painful area for up to 12 hrs No Action (DME) blood pressure monitor [Blood Pressure Kit] Kit See Rx Instructions .Route Qty: 1 0RF Rx Instructions: As directed famotidine 20 mg tablet PO PRN Patient Comments: TAKE 1 TABLET BY MOUTH TWICE DAILY budesonide-formoterol [Breyna] 80-4.5 mcg/actuation HFA aerosol inhaler 1 puff inhalation BID Qty: 10.2 3RF carvedilol [Coreg] 3.125 mg tablet 3.125 mg PO BID Qty: 60 5RF Rx Instructions: must administer with a meal/food lisinopril 2.5 mg tablet 2.5 mg PO DAILY Qty: 30 5RF acetaminophen 500 mg Tablet 1,000 mg PO Q6H PRN (Reason: Fever Or Mild Pain (1-3)) Qty: 30 0RF budesonide-formoterol [Breyna] 80-4.5 mcg/actuation HFA aerosol inhaler 1 inh INHALATION DAILY Patient Comments: INHALE 1 PUFF TWICE DAILY amoxicillin 500 mg tablet 500 mg PO BID 10 Days Qty: 20 0RF fluticasone propionate 50 mcg/actuation spray,suspension 1 spray intranasal DAILY Qty: 16 0RF Referrals Follow up/Referrals: Provider,Referral, MD [Primary Care Provider] - See instructions Activity Restrictions/Add. Instructions Additional Instructions/Restrictions: For your impacted earwax, recommend dissolving earwax with hydrogen peroxide as follows. How to Use Hydrogen Peroxide for Earwax Removal: * Preparation:?According to [employer] [email or web address]-[email or web address] , lie on your side with the affected ear facing up.? * Application:?Use a dropper to apply 5-10 drops of a 3% hydrogen peroxide solution into the ear canal.? * Wait:?Allow the solution to fizz and bubble for a few minutes, as this indicates the hydrogen peroxide is breaking down the wax.? * Flush:?Sit up and tilt your head to let the solution and wax drain out onto a tissue or sink.? * Repeat:?You can repeat the process on the other ear if needed.? For your back pain, recommend taking Tylenol 1000 mg every 6 hours (do not take more than 4 g during a 24-hour period), ibuprofen 400 mg every 6 hours, lidocaine patches daily, and use the Robaxin as needed for muscle relaxation. Follow-up with primary care doctor. Please return emerged part with any new, concerning, worsening symptoms. Clinical Impressions Clinical Impression: Cerumen impaction Qualifiers: Laterality: right Qualified Code(s): H61.21 - Impacted cerumen, right ear Back pain Qualifiers: Back pain location: low back pain Chronicity: acute Back pain laterality: left Sciatica presence: without sciatica Qualified Code(s): M54.50 - Low back pain, unspecified Print Language Print Language: Korean Discharge ED Provider: Reynaldo Ivey General Adult HPI General Chief complaint: Ear Stated complaint: beating in right ear, lower back pain Time Seen by Provider: 09/05/24 22:15 Mode of Arrival: Ambulatory Source of Information: Patient Limitations: No Limitations Description of Symptoms (Recalled from ER Triage Doc. by RN): Pt presents for evaluation of a beating sensation in his right ear History of Present Illness HPI narrative: This is a 44-year-old male who presents with multiple complaints. States that he is having throbbing sensation in side his right ear for the last several days. Also reports chronic back pain. Has worsened over the last few days with spasming of his left lower back. States that it is worse in the morning and then resolves after taking Tylenol and ibuprofen. Denies any lower extremity numbness or tingling, saddle anesthesia, urinary incontinence/retention, fecal incontinence. Related Data Home Medications ?Medication ?Instructions ?Recorded ?Confirmed famotidine 20 mg tablet mg PO PRN 03/06/24 03/20/24 budesonide-formoterol HFA 80 1 inh inhalation DAILY 06/23/24 06/23/24 mcg-4.5 mcg/actuation aerosol inhaler (Breyna) Previous Rx's ?Medication ?Instructions ?Recorded acetaminophen 500 mg tablet 1,000 mg (2 x 500 mg) PO Q6H PRN 02/18/24 Fever Or Mild Pain (1-3) #30 tabs blood pressure monitor (Blood #1 ea 03/20/24 Pressure Kit) budesonide-formoterol HFA 80 1 puff inhalation BID #10.2 grams 04/25/24 mcg-4.5 mcg/actuation aerosol inhaler (Breyna) carvedilol 3.125 mg tablet (Coreg) 3.125 mg PO BID #60 tabs 04/25/24 lisinopril 2.5 mg tablet 2.5 mg PO DAILY #30 tabs 04/25/24 amoxicillin 500 mg tablet 500 mg PO BID 10 days #20 tabs 06/23/24 fluticasone propionate 50 1 spray intranasal DAILY #16 grams 06/23/24 mcg/actuation nasal spray,suspension lidocaine 5 % topical patch 1 patch topical DAILY #15 ea 09/05/24 methocarbamol 750 mg tablet 1,500 mg (2 x 750 mg) PO TID #90 09/05/24 tabs Allergies Allergy/AdvReac Type Severity Reaction Status Date / Time No Known Allergies Allergy Verified 03/20/24 15:00 [facility] Disclaimer: The information contained in this section may have been updated after the patient was seen, as this information can be updated by other users. 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 , [employer]) Hyperglycemia Sinusitis Back pain with sciatica Patient left before triage assessment Upper respiratory infection Tinea pedis Exposure to COVID-19 virus Lumbar radiculopathy Psoriasis History of back pain Asthma Family History , [employer]) Family history of acute heart failure Thyroid cancer Cancer of kidney Social History , [employer]) Smoking Status: Never smoker alcohol intake: never current occupational status: employed Travel in the last 8 weeks: None housing: house Have you lived/traveled outside [place] in past 30 days?: No Contact w/someone who lives/traveled outside [place] past 30 days?: No Exposure to someone with infectious disease in past 14 days?: No Do you have a fever (greater than 100.4 F or 38 C)?: No Have you tested positive for COVID-19: No Exposed to someone with COVID-19 in past 14 days?: No Do you have a sore throat?: No Do you have a cough?: No Do you have any weakness?: No Do you have any diarrhea?: No Are you experiencing any unusual bleeding?: No Do you have any muscle aches/pain?: No Do you have any abdominal pain?: No Are you experiencing loss of taste or smell?: No Other 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 Have you received the Flu Vaccine for this season: No Have you received the Pneumonia Vaccine: No ROS Obtained: Yes All systems reviewed & no additional complaints except as documented Physical Exam General General appearance: alert and in no apparent distress Head Head exam: atraumatic Eye Eye exam: Present normal appearance, PERRL and EOMI ENT ENT exam: Present normal external ear exam and other (Impacted cerumen in ears bilaterally) Neck Neck exam: Present normal inspection and full ROM Chest Chest inspection: Present symmetric chest wall rise Respiratory Respiratory exam: Present normal lung sounds bilaterally; Absent respiratory distress Cardiovascular Cardiovascular exam: Present regular rate and normal rhythm Abdominal Exam Abdominal exam: Present soft; Absent distention Extremities Exam Extremities exam: Present normal inspection Neurological Exam Neurological exam: Present alert, oriented X3 and normal gait; Absent motor sensory deficit Psychiatric Psychiatric exam: Present normal affect and normal mood Skin Skin exam: Present warm and dry Medical Decision Making Medical Records Medical records reviewed: Yes I reviewed the patient's medical records. Screening: Per USPSTF and CDC recommendations, given the prevalence of disease in our region, it is our hospital?s policy to screen for HIV and viral Hepatitis for all patients aged 18 and over and those with ongoing risk factors. Dariel Inquiry Pt receiving controlled substance: No Vital Signs: 09/05/24 21:58 09/05/24 22:44 Temperature 98.3 F 97.9 F Temperature Source Oral Pulse Rate 88 Pulse Rate [Right] 98 H Respiratory Rate 14 18 Blood Pressure 138/78 Blood Pressure [Right Arm] 149/92 H Blood Pressure Mean [Right Arm] 111 Blood Pressure Source [Right Arm] Automatic Cuff Blood Pressure Position [Right Arm] Sitting 02 Sat by Pulse Oximetry 98 Oxygen Delivery Method Room Air Room Air Medical Decision Narrative: This is a 44-year-old male who presents with multiple complaints including throbbing in his right ear as well as acute on chronic left lower back pain. On arrival, patient ambulatory, afebrile, nontachycardic, hemodynamically stable, neurologically intact. Differential diagnosis includes but is not limited to degenerative disc disease, sciatica, muscle strain, foreign body in external auditory canal, impacted cerumen, acute otitis media. No red flag symptoms or abnormal physical exam findings concerning for cord compression syndrome. Most likely musculoskeletal etiology of patient's left lower back pain. Impacted cerumen is most likely diagnosis of his ear complaint. He was counseled on treatment of impacted cerumen at home with hydrogen peroxide and prescribed multimodal pain regiment for his acute on chronic lower back pain. Patient was appropriate for discharge at this time. Critical Care Critical Care Time Critical Care Time: No
[2024-09-05 22:44] VITALS: BP 138/78; PULSE 88; RESP 18; TEMP 36.6; O2SAT 97
== END 2024-09-05 22:46 | disposition home or self-care (01) ==
PROVIDERS: Emergency Provider Student in an Organized Health Care Education/Training Program
DX: M54.42 Lumbago with sciatica, left side (principal); H61.21 Impacted cerumen, right ear
CPT/HCPCS: 99283